=== PATIENT | female | born 1950 | race Caucasian/White ===

== ENCOUNTER → 2018-06-28 | Outpatient (CLI) | payer MEDICARE, BC ==
[2018-06-28 09:52] VITALS: BP 154/88; PULSE 73; BMI 32.5
--- NOTE | 2018-06-28 10:35 | P.GSHP ---
History of Present Illness H&P Date: 06/28/18 The patient is a 68-year-old white female who approximately 13 years ago underwent a left breast lumpectomy. She was subsequently treated with radiation but did not have any chemo or hormonal therapy. The patient is been doing well and recently had a bilateral mammogram performed. The bilateral mammogram there were 2 new areas of concern in the right breast and additional views were recommended of the right breast. The mammogram was performed 2017. The patient denies any changes in her breast. No skin changes. No nipple discharge or masses or nodules in the breast. Family history: 1.patient left breast cancer 2. Maternal grandmother: Breast cancer 3. Paternal grandmother: Lymphoma Hormonal history: menarche: 17 : 2,first at 25, breast fed: none menopause: 54 BCP: 5 years than had a tubal Hormone: none Past Surgical History: 1. left breast lumpectomh Past Medical History: none Social History: Smoke: Negative Alcohol: Negative Drugs: Negative - Constitutional Constitutional: Denies chills, Denies fever - EENT Eyes: denies blurred vision, denies pain Ears: deny: decreased hearing, tinnitus Ears, nose, mouth and throat: Denies headache, Denies sore throat - Breasts Breasts: bilateral: as per HPI - Cardiovascular Cardiovascular: Denies chest pain, Denies shortness of breath - Respiratory Respiratory: Denies cough, Denies 7 - Gastrointestinal Gastrointestinal: Denies abdominal pain, Denies diarrhea, Denies nausea, Denies vomiting - Genitourinary (Female) Genitourinary: Denies dysuria, Denies hematuria - Menstruation Menstruation: Reports postmenopausal - Musculoskeletal Comment: arthritis - Integumentary Integumentary: Denies pruritus, Denies rash - Neurological Neurological: Denies numbness, Denies weakness - Psychiatric Psychiatric: Denies anxiety, Denies depression - Endocrine Endocrine: Denies fatigue, Denies weight change - Hematologic/Lymphatic Comment: baby aspirin - Allergic/Immunologic Allergic/Immunologic: Reports seasonal allergies Past Medical History Past Medical History: No Reported History History of Any Multi-Drug Resistant Organisms: None Reported Past Surgical History: Breast Surgery Past Anesthesia/Blood Transfusion Reactions: No Reported Reaction Smoking Status: Never smoker - Past Family History Father Additional Family Medical History / Comment(s): MS, heart attack, stroke - at 52 Mother Additional Family Medical History / Comment(s): of an overdose at age 35 ( emotional issues) Medications and Allergies Home Medications Medication Instructions Recorded Confirmed Type Aspirin [Adult Low Dose Aspirin EC] 81 mg PO DAILY 06/28/18 06/28/18 History Atorvastatin Calcium [Lipitor] 10 tab PO DAILY 06/28/18 06/28/18 History Calcium Carbonate [Calcium] 600 tab PO DAILY 06/28/18 06/28/18 History Loratadine [Claritin] 10 tab PO DAILY 06/28/18 06/28/18 History Multivitamins, Thera [Multivitamin 500 tab PO DAILY 06/28/18 06/28/18 History (formulary)] Surgical - Exam Vital Signs Pulse BP Pulse Ox 73 154/88 98 06/28/18 09:47 06/28/18 09:47 06/28/18 09:47 - General well developed, well nourished, no distress - Eyes normal ocular movement, no icteric - ENT no hearing loss, no congestion - Neck no masses, trachea midline - Respiratory normal respiratory effort, clear to auscultation - Cardiovascular Rhythm: regular Heart Sounds: normal: S1, S2 - Abdomen Abdomen: soft, non tender, no guarding, no rigid, no rebound - Neurologic no disoriented, no combative - Musculoskeletal normal gait, normal posture - Psychiatric oriented to time, oriented to person, oriented to place, speech is normal, memory intact Dictate breast examination: Right breast: Multiple positional exam fibrocystic changes no dominant masses or nodules of concern Right axilla: No adenopathy of concern Left breast: Scar changes from prior lumpectomy no dominant mass or nodules of concern of multiple positional exam Left axilla: No adenopathy of concern Results Mammogram report reviewed Assessment and Plan Assessment: Impression/plan: 1. Abnormal mammogram right breast 2. Prior left breast lumpectomy/ no evidence of recurrence Plan: 1. Additional views of the right breast and further recommendation to follow this 2. Follow-up after additional views of the right breast 3. Continued surveillance regarding left breast cancer Cc: Dr. Condon
== END | disposition home or self-care (01) ==
LOC: WWCWWP 09:30
PROVIDERS: ATTEND Surgery
DX: Z53.9 Procedure and treatment not carried out, unspecified reason (principal)

== ENCOUNTER → 2018-07-11 | Outpatient (CLI) | payer MEDICARE, BC ==
[2018-07-11 09:53] VITALS: BMI 32.5
--- NOTE | 2018-07-11 10:17 | P.PN ---
Progress Note - Text Progress Note Date: 07/11/18 The patient is a 68-year-old white female who presented for evaluation related to a mammogram performed on [id number]. The patient was recommended to have additional views of the right breast. Additional views were performed which led to an ultrasound. On ultrasound she was noted to have an area of concern at 10:00 for which ultrasound-guided core biopsy was recommended and the second site at 12:00 which it was recommended that attempted ultrasound core BX performed. The patient understands the risks and benefits of this and this is being scheduled in the near future. She will follow up here after the ultrasound core biopsies are performed. Cc: Dr. Ricardo Condon
--- NOTE | 2018-07-11 13:42 | MM ---
Reason for exam: additional evaluation requested from prior study. Last mammogram was performed 1 month ago. History: Patient is postmenopausal and has history of breast cancer at age 55. Family history of breast cancer in maternal grandmother at age 60. Lumpectomy of the left breast, 2004. Radiation therapy of the left breast, 2004. Took hormonal contraceptives beginning at age 21. Physical Findings: Nurse did not find any significant physical abnormalities on exam. MG 3D Diag Mammo W/Cad RT Spot compression CC, spot compression MLO, and ML view(s) were taken of the right breast. Prior study comparison: June 20, 2018, mammogram. May 22, 2017, mammogram. The breast tissue is heterogeneously dense. This may lower the sensitivity of mammography. Finding #1: There is an intermediate concern, suspicious equal density (isodense), spiculated round mass located 3 cm from the nipple in the 10 o'clock upper outer quadrant, middle position of the right breast. Finding #2: There are stable, fine, regional calcifications in the upper outer quadrant, middle position of the right breast. New finding since May 22, 2017. These results were verbally communicated with the patient and result sheet given to the patient on 07/11/18. ASSESSMENT: Incomplete: need additional imaging evaluation, BI-RAD 0 RECOMMENDATION: Ultrasound of the right breast.
--- NOTE | 2018-07-11 13:47 | USB ---
Reason for exam: additional evaluation requested from abnormal screening. History: Patient is postmenopausal and has history of breast cancer at age 55. Family history of breast cancer in maternal grandmother at age 60. Lumpectomy of the left breast, 2004. Radiation therapy of the left breast, 2004. Took hormonal contraceptives beginning at age 21. US Breast Limited RT Right limited breast ultrasound including focal area of concern, retroareolar and axilla demonstrates a 0.4 x 0.1 x 0.3cm lesion too small to characterize at 10 o'clock, based on mammogram, biopsy recommended, an axilla node and a 0.2 x 0.3 x 0.5cm lesion too small to characterize at 12 o'clock, appears taller than wide, difficult to reproduce, biopsy attempt recommended. These results were verbally communicated with the patient and result sheet given to the patient on 07/11/18. ASSESSMENT: Suspicious, BI-RAD 4 RECOMMENDATION: Ultrasound core biopsy of the right breast. (x 2) Patient already has appointment today to see Dr. Barcenas.
== END | disposition home or self-care (01) ==
LOC: RADMAMWWP 06:48
PROVIDERS: ATTEND Surgery
DX: R92.8 Other abnormal and inconclusive findings on diagnostic imaging of breast (principal); N63.10 Unspecified lump in the right breast, unspecified quadrant
CPT/HCPCS: 77065; 76642; G0279; 77061

== ENCOUNTER → 2018-07-19 | Day surgery (SDC) | payer MEDICARE, BC ==
[2018-07-19 11:08] VITALS: RESP 14; TEMP 98.1; BMI 32.6
[2018-07-19 13:38] VITALS: BP 157/85; PULSE 63
--- NOTE | 2018-07-19 16:15 | USB ---
EXAMINATION TYPE: US biopsy breast VAD RT DATE OF EXAM: 07/19/2018 CLINICAL HISTORY: N60.09 BREAST CYST. TECHNIQUE: Ultrasound guided core biopsy of left breast. COMPARISON: 07/11/2018 FINDINGS: The procedure of ultrasound guided core biopsy was explained to the patient. Benefits, alternatives, and risks were discussed. An informed consent was obtained. Timeout was performed. The patient was placed in supine positioning for imaging and for the procedure. The overlying skin was prepped and draped in usual sterile fashion. Lidocaine buffered with bicarbonate was used as anesthetic into the skin and subcutaneous tissue up to area of concern in the 12:00 position left breast. A leonard was made with surgical scalpel. Under ultrasound guidance, a 12-gauge vacuum assisted biopsy gun device was used to obtain 9 core samples. Following this, a ribbon biopsy clip was left adjacent to the biopsy site. Good hemostasis was obtained with direct pressure. There is moderate bleeding at the biopsy site which was controlled with direct pressure. Approximately 10-15 mL bleeding was observed. A complete new set up was performed. The overlying skin was prepped and draped in usual sterile fashion. Lidocaine buffered with bicarbonate was used as anesthetic into the skin and subcutaneous tissue up to area of concern in the 10 :00 position left breast. A leonard was made with surgical scalpel. Under ultrasound guidance, a 12-gauge vacuum assisted biopsy gun device was used to obtain 3 core samples. The lesion appeared essentially completely sampled after the first biopsy pass. Following this, a coil biopsy clip was left at the biopsy site. Good hemostasis was obtained with direct pressure. No significant bleeding was observed at this location. The patient tolerated the procedure well without any immediate complication. Discharge instructions were discussed patient. Patient will follow-up with the referring surgeon. The patient was kept in the radiology department for short stay after the procedure and then discharged home in stable condition. Post procedure mammogram was obtained. Small hematoma is likely at the clinical indication. Clips appear appropriately placed. IMPRESSION: 1. Successful ultrasound-guided core biopsy left breast, 2 locations. Recommendations: 1. Recommendations are pending pathology results. Pathology Results: Benign A. RIGHT BREAST AT 12:00 POSITION, NEEDLE CORE BIOPSIES: Benign breast parenchyma with fibrocystic spectrum changes including apocrine metaplasia, microscopic papillomatosis, stromal fibrosis and focal duct cystic changes. Mineralizations are identified both in the media of blood vessels and microscopically in breast duct spaces. B. RIGHT BREAST AT 10:00 POSITION, NEEDLE CORE BIOPSIES: Fibrocystic changes including stromal fibrosis, with focal duct cystic changes and moderate to florid intraductal hyperplasia. Focal dense microscopic intraductal mineralizations are seen on step sections. Recommendation Follow up ultrasound of the right breast in 6 months. MTDD
--- NOTE | 2018-07-22 08:28 | MM ---
Reason for exam: additional evaluation requested from abnormal screening. Last mammogram was performed less than 1 month ago. History: Patient is postmenopausal and has history of breast cancer at age 55. Family history of breast cancer in maternal grandmother at age 60. Lumpectomy of the left breast, 2004. Radiation therapy of the left breast, 2004. Took hormonal contraceptives beginning at age 21. MG Diagnostic Mammo RT Wo CAD CC and MLO view(s) were taken of the right breast. Prior study comparison: July 11, 2018, right breast MG 3d diag mammo w/cad RT. June 20, 2018, mammogram. ASSESSMENT: Post procedure mammogram for marker placement RECOMMENDATION: Ultrasound of the right breast in 6 months. PENDING PATHOLOGY RESULTS.
== END | disposition home or self-care (01) ==
LOC: RADUSWWP 10:25
PROVIDERS: ATTEND Surgery
DX: N60.11 Diffuse cystic mastopathy of right breast (principal); R92.8 Other abnormal and inconclusive findings on diagnostic imaging of breast; Z80.3 Family history of malignant neoplasm of breast; Z85.3 Personal history of malignant neoplasm of breast; Z92.3 Personal history of irradiation
CPT/HCPCS: 88305; 77065; 19083; 19084; A4648; J2001

== ENCOUNTER → 2018-08-01 | Outpatient (CLI) | payer MEDICARE, BC ==
[2018-08-01 11:28] VITALS: BP 144/84; PULSE 86; BMI 32.5
--- NOTE | 2018-08-01 11:55 | P.PN ---
Progress Note - Text Progress Note Date: 08/01/18 The patient is a 68-year-old white female who is status post ultrasound-guided core biopsy of 2 areas of concern in the right breast. Both areas were benign on core biopsy. The patient had no pain related to this however she does have some ecchymosis and the area of the nipple areolar complex. Additionally she has a small hematoma in the superior area of the breast at 12:00. The initial mammogram showed an area of microcalcification which was new and this is going to be reviewed with the radiologist to determine if any biopsy of this would be necessitated. Physical exam: Lungs: Clear Heart: Regular rate and rhythm Breast examination: Right breast ecchymosis in the periareolar area with a small area of nodularity in the superior 12 o'clock position believed to be related to a hematoma Impression: 1. Patient status post core biopsy of 2 areas of concern in the right breast/ pathology benign 2. Mammographic area of microcalcifications in the right breast to be reviewed with the radiologist Plan: 1. Repeat right breast mammogram and ultrasound in 6 months 2. Depending on recommendation from radiology will follow this area conservatively as well versus a stereotactic core biopsy CC: Dr. Condon
--- NOTE | 2018-08-01 12:05 | P.PN ---
Progress Note - Text Progress Note Date: 08/01/18 Mammogram reviewed with radiology, they are not worried about area of calcifications in right breast. She will have a repeat mammogram and ultrasound of the right breast in 6 months secondary to the biopsy. CC: Dr. Condon
== END | disposition home or self-care (01) ==
LOC: WWCWWP 11:21
PROVIDERS: ATTEND Surgery
DX: Z53.9 Procedure and treatment not carried out, unspecified reason (principal)

== ENCOUNTER → 2019-01-20 | Outpatient (CLI) | payer MEDICARE, BC ==
--- NOTE | 2019-01-20 09:11 | MM ---
Reason for exam: follow-up at short interval from prior study. Last mammogram was performed 6 months ago. History: Patient is postmenopausal and has history of breast cancer at age 55. Family history of breast cancer in maternal grandmother at age 60. Benign US biopsy breast VAD RT of the right breast, July 19, 2018. Benign US biopsy breast add'l VAD RT of the right breast, July 19, 2018. Lumpectomy of the left breast, 2004. Radiation therapy of the left breast, 2004. Took hormonal contraceptives beginning at age 21. Physical Findings: Nurse did not find any significant physical abnormalities on exam. MG 3D Diag Mammo W/Cad RT CC and MLO view(s) were taken of the right breast. Prior study comparison: July 19, 2018, right breast MG diagnostic mammo RT wo CAD. July 11, 2018, right breast MG 3d diag mammo w/cad RT. The breast tissue is heterogeneously dense. This may lower the sensitivity of mammography. There is chronic nodularity in the right breast. Stable upper outer quadrant grouped calcifications. These results were verbally communicated with the patient and result sheet given to the patient on 01/20/19. ASSESSMENT: Incomplete: need additional imaging evaluation, BI-RAD 0 RECOMMENDATION: Ultrasound of the right breast.
--- NOTE | 2019-01-20 09:14 | USB ---
Reason for exam: follow-up at short interval from prior study. History: Patient is postmenopausal and has history of breast cancer at age 55. Family history of breast cancer in maternal grandmother at age 60. Benign US biopsy breast VAD RT of the right breast, July 19, 2018. Benign US biopsy breast add'l VAD RT of the right breast, July 19, 2018. Lumpectomy of the left breast, 2004. Radiation therapy of the left breast, 2004. Took hormonal contraceptives beginning at age 21. US Breast RT Right complete breast ultrasound includes all four quadrants, the retroareolar region and axilla. Finding demonstrates a 5 x 3 x 4mm mixed lesion too small to characterize at 12 o'clock corresponds to the biopsied site, now with a clip, a 4 x 2 x 5mm lesion too small to characterize at 10 o'clock also with a clip and a 6 x 2 x 6mm cystic cluster at 10 o'clock versus complex cyst for which a 6 month follow up is recommended. These results were verbally communicated with the patient and result sheet given to the patient on 01/20/19. ASSESSMENT: Probably benign, BI-RAD 3 RECOMMENDATION: Follow-up diagnostic mammogram of both breasts in 6 months. Back on schedule. Ultrasound of the right breast in 6 months. (attention 10 o'clock zone B)
== END ==
LOC: RADMAMWWP 07:25
PROVIDERS: ATTEND Surgery
DX: R92.8 Other abnormal and inconclusive findings on diagnostic imaging of breast (principal)
CPT/HCPCS: 77065; 76641; G0279; 77061

== ENCOUNTER → 2019-01-24 | Outpatient (CLI) | payer MEDICARE, BC ==
[2019-01-24 09:52] VITALS: BP 167/73; PULSE 85; RESP 18; TEMP 97.1; BMI 32.5
--- NOTE | 2019-01-24 10:11 | P.PN ---
Subjective Progress Note Date: 01/24/19 Principal diagnosis: Fibrocystic breast changes D&Dewey is a 68-year-old white female who comes for follow-up weight breast mammogram and ultrasound after a 2 site biopsy of the right breast performed in July 2018. The biopsy at that time revealed at the 12 o'clock position be nign breast parenchyma with fibrocystic spectrum changes and microscopic papillomatosis at the 10 o'clock position the patient had fibrocystic changes with focal ductal cystic changes at moderate to florid intraductal hyperplasia. The patient does not feel anything of concern in her breast at this time. The patient had a repeat right mammogram and ultrasound performed on . The mammogram revealed heterogeneously dense breast tissue and chronic nodularity with stable upper outer quadrant grouped calcifications. The ultrasound revealed several areas of cystic change and a complex cyst that 10:00 for which a 6 month follow-up was recommended. The patient does not take any hormones. She drinks 3- 4 cups of coffee/day. The patient does not smoke nor she exposed to secondhand smoke. She does not eat chocolate. The patient is status post left breast lumpectomy in 2004. She did have radiation therapy, she did not have any chemotherapy or anti-hormonal therapy. Family History: maternal grandmother: breast cancer paternal grandmother: lymphoma Patient: Prior history of left breast cancer Objective - Vital Signs Vital signs: Vital Signs Temp 97.1 F L 01/24/19 09:44 Pulse 85 01/24/19 09:44 Resp 18 01/24/19 09:44 BP 167/73 01/24/19 09:44 Pulse Ox 95 01/24/19 09:44 Intake & Output 01/23/19 01/24/19 01/24/19 18:59 06:59 18:59 Weight 80.739 kg - Exam BMI 32.6 - Constitutional General appearance: Present: average body habitus - EENT Eyes: Present: EOMI ENT: Present: hearing grossly normal - Respiratory Respiratory: bilateral: CTA - Cardiovascular Rhythm: regular Heart sounds: normal: S1, S2 - Gastrointestinal General gastrointestinal: Present: soft - Integumentary Integumentary Comment(s): breast exam: Right breast: Fibrocystic changes, multiple positional exam no dominant masses or nodules of concern Right axilla: No adenopathy of concern Left breast: Well-healed scar from prior lumpectomy, asymmetrically smaller than the right breast, no dominant masses or nodules of concern, fibrocystic changes Left axilla: No adenopathy of concern Assessment and Plan Assessment: Impression: 1. Personal history of left breast cancer 2. No evidence of recurrent cancer 3. Fibrocystic breast changes 4. Radiographic abnormality right breast 5. History of papillomatosis 6. Family history of cancer 7. High cholesterol Plan: 1. Continue close surveillance secondary to history of breast cancer 2. Repeat bilateral mammogram in 6 months with a right breast ultrasound 3. We will review the pathology and papillomatosis to assure that there is no need for interventional biopsy at this time 4. Continued medical management of medical conditions CC: Dr. Condon
== END ==
LOC: WWCWWP 09:41
PROVIDERS: ATTEND Surgery
DX: Z53.9 Procedure and treatment not carried out, unspecified reason (principal)

== ENCOUNTER → 2019-07-28 | Outpatient (CLI) | payer MEDICARE, BC ==
--- NOTE | 2019-07-28 09:41 | MM ---
Reason for exam: follow-up at short interval from prior study. Last mammogram was performed 6 months ago. History: Patient is postmenopausal and has history of breast cancer at age 55. Family history of breast cancer in maternal grandmother at age 60. Benign US biopsy breast VAD RT of the right breast, July 19, 2018. Benign US biopsy breast add'l VAD RT of the right breast, July 19, 2018. Lumpectomy of the left breast, 2004. Radiation therapy of the left breast, 2004. Took hormonal contraceptives beginning at age 21. Physical Findings: Nurse did not find any significant physical abnormalities on exam. MG 3D Diag Mammo W/Cad SHEA Bilateral CC and MLO view(s) were taken. Prior study comparison: January 20, 2019, right breast MG 3d diag mammo w/cad RT. July 19, 2018, right breast MG diagnostic mammo RT wo CAD. The breast tissue is heterogeneously dense. This may lower the sensitivity of mammography. Previous mammotome biopsy in the right breast x 2. Post surgical and post therapy changes in the left breast. These results were verbally communicated with the patient and result sheet given to the patient on 07/28/19. ASSESSMENT: Incomplete: need additional imaging evaluation, BI-RAD 0 RECOMMENDATION: Ultrasound of the right breast. upper outer quadrant
--- NOTE | 2019-07-28 09:44 | USB ---
Reason for exam: additional evaluation requested from abnormal screening. History: Patient is postmenopausal and has history of breast cancer at age 55. Family history of breast cancer in maternal grandmother at age 60. Benign US biopsy breast VAD RT of the right breast, July 19, 2018. Benign US biopsy breast add'l VAD RT of the right breast, July 19, 2018. Lumpectomy of the left breast, 2004. Radiation therapy of the left breast, 2004. Took hormonal contraceptives beginning at age 21. US Breast Limited RT Right limited breast ultrasound including focal area of concern, retroareolar and axilla demonstrates a lesion too small to characterize at 12 o'clock, a 0.6 x 0.6 x 0.4cm oval lesion at 10 o'clock, larger from prior, 6 month follow up, seems to correspond to previous biopsy site where pathology revealed fibrocystic change, a 0.4 x 0.3 x 0.2cm oval, lesion too small to characterize at 10 o'clock and a 0.4 x 0.3 x 0.2cm oval lesion too small to characterize at 11 o'clock, 6 month follow up recommended. These results were verbally communicated with the patient and result sheet given to the patient on 07/28/19. ASSESSMENT: Probably benign, BI-RAD 3 RECOMMENDATION: Ultrasound of the right breast in 6 months.
== END | disposition home or self-care (01) ==
LOC: RADMAMWWP 07:35
PROVIDERS: ATTEND Surgery
DX: Z08 Encounter for follow-up examination after completed treatment for malignant neoplasm (principal); Z85.3 Personal history of malignant neoplasm of breast; R92.8 Other abnormal and inconclusive findings on diagnostic imaging of breast
CPT/HCPCS: 77066; 76642; G0279; 77062

== ENCOUNTER → 2019-08-07 | Outpatient (CLI) | payer MEDICARE, BC ==
[2019-08-07 09:08] VITALS: BP 136/81; PULSE 86; RESP 18; TEMP 97.9; BMI 32.5
--- NOTE | 2019-08-07 09:50 | P.PN ---
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 She did not have any chemotherapy or hormonal therapy. Approximately a year ago she underwent a right breast biopsy for mammographic abnormalitywas found to be benign microscopic papillomatosis. She is not complaining of any problems with either breast at this time. She had a bilateral mammogram performed on 07/28/2019. This was felt to be incomplete and ultrasound of the right breast was recommended. The ultrasound of the right breast reveals changes consistent with fibrocystic disease it was felt to be probably benign and repeat ultrasound of the right breast in 6 months time was recommended. Family History: maternal grandmother: breast cancer paternal grandmother: lymphoma Patient: Prior history of left breast cancer Hormonal history: Menarche: 16 , breast fed: none, age at first : 23 menopause: 52 BCP: 2 years hormones: none Surgical history: 1. Tubal ligation 2. Left breast lumpectomy Medical History: high cholesterol Social History: Smoking: Negative Alcohol: Negative Drugs: Negative Review of systems: Constitutional: Negative HEENT: none lungs: none heart: none GI: none : bladder infection in the past Musculoskeletal: Negative Psychiatric: Negative Neurologic: Negative Integument: mole which has changed Objective - Vital Signs Vital signs: Vital Signs Temp 97.9 F 08/07/19 09:02 Pulse 86 08/07/19 09:02 Resp 18 08/07/19 09:02 BP 136/81 08/07/19 09:02 Pulse Ox 97 08/07/19 09:02 Intake & Output 08/06/19 08/07/19 08/07/19 18:59 06:59 18:59 Weight 80.739 kg - Exam BMI 32.6 - Constitutional General appearance: Present: average body habitus - EENT Eyes: Present: EOMI ENT: Present: hearing grossly normal - Neck Neck: Present: normal ROM - Respiratory Respiratory: bilateral: CTA - Cardiovascular Rhythm: regular Heart sounds: normal: S1, S2 - Gastrointestinal General gastrointestinal: Present: soft - Integumentary Integumentary Comment(s): nevis with some crusting at her bra line Integumentary: Present: normal turgor - Musculoskeletal Musculoskeletal: Present: gait normal - Psychiatric Psychiatric: Present: A&O x's 3, appropriate affect, intact judgment & insight - Additional findings Additional findings: Breast examination: Seven: Multiple positional exam no dominant masses or nodules of concern Right axilla: No adenopathy of concern Left breast: Well-healed scar from prior lumpectomy multiple positional exam no dominant masses or nodules of concern, left breast is much smaller than the right breast requiring Implant so that her bra off its Left axilla: No adenopathy of concern Bra size: 42B Patient has been told she has some scoliosis, she has some back discomfort, she has difficulty wearing clothes secondary to the discrepancy in size of her breast and is necessary wear prosthesis with the left breast so that her bra and clothes will fit. This is distress for the patient. She wishes to have sy mmetry procedure performed. Assessment and Plan Assessment: Impression: 1. Personal history of left breast cancer 2. Asymmetry of the breast resulting in difficulty with clothes fitting as well as aggravating back pain and anxiety for the patient 3. Hyperlipidemia 4. abnormal nevis Plan: 1. Excision of nevus Bra line 2. Reduction mammoplasty right breast secondary to asymmetry 3. Medical management of medical conditions CC: DR. Condon
== END | disposition home or self-care (01) ==
LOC: WWCWWP 08:54
PROVIDERS: ATTEND Surgery
DX: Z53.9 Procedure and treatment not carried out, unspecified reason (principal)

== ENCOUNTER → 2019-09-25 | Outpatient (CLI) | payer MEDICARE, BC ==
[2019-09-25 15:03] VITALS: BP 161/80; PULSE 93; RESP 18; TEMP 98; BMI 32.5
--- NOTE | 2019-09-25 16:05 | P.PN ---
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 She did not have any chemotherapy or hormonal therapy. Approximately a year ago she underwent a right breast biopsy for mammographic abnormalitywas found to be benign microscopic papillomatosis. She is not complaining of any problems with either breast at this time. She had a bilateral mammogram performed on 07/28/2019. This was felt to be incomplete and ultrasound of the right breast was recommended. The ultrasound of the right breast reveals changes consistent with fibrocystic disease it was felt to be probably benign and repeat ultrasound of the right breast in 6 months time was recommended. The patient complains of difficulty finding clothes to fit secondary to the difference in size of her breast. This cause anxiety and discomfort for the patient. The patient is to develop some erythema and questionable shingles under the left breast. She is recently been given a prescription for nystatin a medication for the shingles. Her procedure which was scheduled for next week will be postponed awaiting resolution of the rash. Family History: maternal grandmother: breast cancer paternal grandmother: lymphoma Patient: Prior history of left breast cancer Hormonal history: Menarche: 16 , breast fed: none, age at first : 23 menopause: 52 BCP: 2 years hormones: none Surgical history: 1. Tubal ligation 2. Left breast lumpectomy Medical History: high cholesterol Social History: Smoking: Negative Alcohol: Negative Drugs: Negative Review of systems: Constitutional: Negative HEENT: none lungs: none heart: none GI: none : bladder infection in the past Musculoskeletal: Negative Psychiatric: Negative Neurologic: Negative Integument: mole which has changed Objective - Vital Signs Vital signs: Vital Signs Temp 98.0 F 09/25/19 14:59 Pulse 93 09/25/19 14:59 Resp 18 09/25/19 14:59 BP 161/80 09/25/19 14:59 Pulse Ox 97 09/25/19 14:59 Intake & Output 09/24/19 09/25/19 09/25/19 18:59 06:59 18:59 Weight 80.739 kg - Exam BMI 32.6 - Constitutional General appearance: Present: obese - EENT Eyes: Present: EOMI ENT: Present: hearing grossly normal - Neck Neck: Present: normal ROM - Respiratory Respiratory: bilateral: CTA - Cardiovascular Rhythm: regular Heart sounds: normal: S1, S2 - Gastrointestinal General gastrointestinal: Present: soft - Integumentary Integumentary: Present: normal turgor - Musculoskeletal Musculoskeletal: Present: gait normal - Psychiatric Psychiatric: Present: A&O x's 3, appropriate affect, intact judgment & insight - Additional findings Additional findings: breast exam: Right breast: Multi-positional exam no dominant masses or nodules of concern right axilla: No adenopathy of concern left breast: Significantly smaller than right breast well-healed scar from prior surgery no dominant masses or nodules of concern, probable fungal infection possible shingles under the left breast no skin lesions under the right breast Left axilla: No adenopathy of concern Bra 42B/C Ptosis grade 3 right, grade 1/2 left Assessment and Plan Assessment: Impression: 1. Personal history of breast cancer 2. Asymmetry of the breast resulting in difficulty with clothes fitting, as well as aggravating back pain and anxiety for the patient 3. Hyperlipidemia 4. [place] with some crusting at her bra line 5. Fungal infection versus shingles under her left breast Plan: 1. Excision of nevus bra line 2. Reduction mammoplasty right breast secondary to asymmetry 3. Medical management of medical conditions 4. Nystatin/medication for shingles was given by primary care doctor 5. Patient to call on October 06, to inform us of hte status of the rash under her left breast prior to proceeding with surgery Patient has been told she has some scoliosis. She has some back discomfort and has difficulty wearing close secondary to the discrepancy in size of her breast and it is necessary for her to wear prosthesis in the left block so that her) 4. This causes distress for the patient. She wishes to have symmetry procedure performed. I given the patient the option of seeing a plastic surgeon or having a procedure done by a plastic surgeon. She has declined. She understands the risks and benefits which include bleeding infection reaction to the anesthetic. She also understands that she did have some decreased sensation and/or loss of the nipple complex. She understands the breast will not be totally symmetric. She wishes to proceed. about 30 minutes spent with the patient; > 50% of the time spent explaining the procedure to the patient. The patient was measured, and lines were marked to explain where the incisions would be made. Pictures were obtained. CC: DR. Condon Time with Patient: Greater than 30
== END | disposition home or self-care (01) ==
LOC: WWCWWP 14:52
PROVIDERS: ATTEND Surgery
DX: Z53.9 Procedure and treatment not carried out, unspecified reason (principal)

== ENCOUNTER 2019-10-07 07:25 | Day surgery (SDC) | payer MEDICARE, BC ==
[2019-10-06 10:00] VITALS: BMI 32.5
[~2019-10-07 07:25] MED LIST: DEXAMETHASONE SOD PHOSPHATE 10 MG/ML 1 ML VIAL IV ONE; HEPARIN SODIUM,PORCINE 5,000 UNIT/ML 1 ML VIAL SQ ONE; HYDROmorphone 0.5 MG/0.5 ML SYRINGE IVP PRN; LACTATED RINGERS 1,000 ML IV SCH; MIDAZOLAM 2 MG/2 ML VIAL IV PRN; ONDANSETRON 4 MG/2 ML VIAL IVP ONE; Pre Op ABX Message 1 EACH MISC MISCELLANE ONE
[2019-10-07] MEDS ORDERED: LIDOCAINE 1% 20 ML VIAL (10MG/ML) FOR IV START INTRADERMA ONE (07:55)
[2019-10-07] MEDS ORDERED: LIDOCAINE 1% INJ 10MG/ML (20 ML MDV) ONE (08:24)
[2019-10-07] MEDS ORDERED: MIDAZOLAM 2 MG/2 ML VIAL ONE (08:24)
[2019-10-07] MEDS ORDERED: NEOSTIGMINE 1 MG/ML 10 ML VIAL ONE (08:24)
[2019-10-07] MEDS ORDERED: GLYCOPYRROLATE 0.2 MG/ML 2 ML VIAL ONE (08:24)
[2019-10-07] MEDS ORDERED: SUCCINYLCHOLINE CHLORIDE 100 MG/5 ML SYR IV ONE (08:24)
[2019-10-07] MEDS ORDERED: fentaNYL (PF) 50 MCG/ML 2 ML AMP ONE (08:24)
[2019-10-07] MEDS ORDERED: PHENYLEPHRINE-0.9% NACL SYG 1 MG/10 ML SYRINGE ONE (08:24)
[2019-10-07] MEDS ORDERED: ROCURONIUM BROMIDE 10 MG/ML 10 ML VIAL IV ONE (08:24)
[2019-10-07] MEDS ORDERED: PROPOFOL 10 MG/ML 20 ML VIAL IV ONE (08:24)
[2019-10-07] MEDS ORDERED: SODIUM CHLORIDE 0.9% 100 ML with ceFAZolin 2,000 MG IV ONE ×2 (08:35)
[2019-10-07] MEDS ORDERED: LACTATED RINGERS 1,000 ML IV ONE (10:09)
[2019-10-07 10:59] VITALS: TEMP 97.4
[2019-10-07 11:07] VITALS: RESP 16
[2019-10-07 12:24] VITALS: PULSE 58
[2019-10-07 12:37] VITALS: BP 144/56
--- NOTE | 2019-10-07 21:05 | OP ---
OPERATIVE REPORT DATE OF SURGERY: 10/07/2019 SURGEON: Dr. Jose Alfredo Hankins. 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 Gabe Jacobs. PREOPERATIVE DIAGNOSES: 1. Acquired asymmetry of breast secondary to breast cancer treatment. 2. Personal history of breast cancer. POSTOPERATIVE DIAGNOSES: 1. Acquired asymmetry of breast secondary to breast cancer treatment. 2. Personal history of breast cancer. OPERATIVE PROCEDURE: Right breast reduction. OPERATIVE INDICATIONS: Patient is a 69-year-old female who is 14 years status post left breast lumpectomy, axillary lymph node dissection and radiation treatment for breast cancer. She did well with those procedures and has desired surgery to correct for significant asymmetries that were present following her left breast surgery. The patient was referred to my care for this purpose, and I have counseled her to undergo right breast reduction. The patient understands her potential risks and complications with all surgery, including but not limited to seroma, hematoma, wound healing problems, postoperative infection, loss of sensation, potential loss of nipple-areolar complex or loss of nipple-areolar sensation. The patient further understands that there will not be perfect symmetry created between her right and left breast, but will improve her symmetry over the current state, and I suspect resolve the majority of her concerns. She has requested I perform the surgery. OPERATIVE PROCEDURE SUMMARY: The patient was seen in the presurgical area, markings made, procedure reviewed, all questions answered. She was transported to the operating room, where she was placed in supine position. Following induction of general tracheal anesthesia, the patient was prepped and draped in the usual fashion. The patient's markings placed preoperatively were now oriented with a skin marker. The right breast was distracted from the chest wall, a tourniquet placed around the base and distraction tension placed around the nipple-areolar complex. A 50 mm nipple-areolar template was then used to draw a [place] with the nipple in the central portion. A second [place] was drawn around the first in concentric fashion with 1 cm of tissue in between. Incisions were now made around the nipple-areolar complex following the circles made, each partial-thickness into the skin. The area of in-between tissue was de-epithelialized. All tissue excised from the breast was conserved for weights. At the outer periphery of the de-epithelialized [place], incision was carried into breast parenchyma using cauterization. The nipple- areolar complex was oriented for later retrieval with one staple at 12 o'clock, 2 michel at 3 o'clock. A 2-0 Prolene suture was placed around the periphery dermal edges of the nipple-areolar complex and tied back to itself as a large loop, also to help with later retrieval of the nipple-areolar complex. The vertical and transverse breast reduction incisions were now made as diagrammed using a 10-blade scalpel to divide the skin in full-thickness fashion followed by cauterization, maintaining hemostasis. Skin and subcutaneous tissue flaps were now elevated off the breast parenchyma by scissor dissection until reaching the planned upper level skin reduction incision, at which point the dissection was carried into a deeper plane, including skin, subcutaneous tissue and breast parenchyma approximately 1.5 cm from the skin surface. The dissection at this level was completed with scissors and carried down to the chest wall. Hemostasis was maintained with cautery once completed. The central breast glandular elements were now reduced from the periphery, taking the majority of breast tissue from the lateral and to a lesser degree from the medial areas. The excised breast tissue was conserved for weights. Once sufficient glandular reduction was completed, the skin reduction was performed following the markings placed preoperatively, excising the skin with a 10-blade scalpel and cauterization. Hemostasis was maintained with cautery. The combined weight of the tissue removed was 150 grams. Inspection was made for hemostasis, which was excellent. The reduction was now closed, approximating the superior, medial and lateral triangular elements to the inferior midline using inverted interrupted 2-0 Vicryl suture and then temporarily completing the closure with michel. The result was as desired and appeared appropriate size and shape for the patient with respect to her left breast. The incisions were now closed, approximating deep dermis using inverted interrupted 4-0 Monocryl. The 2-0 Vicryl suture was removed and replaced with 4-0 Monocryl suture as well. The transverse incision closures were completed at the skin layer using subcuticular 3-0 Prolene short running sutures. The patient was placed in a seated-up position. New location for the nipple-areolar complex was determined using a 45 mm nipple-areolar template. She was returned to supine position. This circular site was now de-epithelialized with a 10-blade scalpel. A cruciate incision was made through the de-epithelialized tissue in the nipple-areolar complex delivered in location. Orientation was assured by identifying the michel. Michel and Prolene sutures were removed. The nipple-areolar complex was inset at the 12 o'clock, 3 o'clock, 6 o'clock, 9 o'clock positions using inverted interrupted 4-0 Monocryl, and then each of these areas bisected again with a deep dermal suture of 4-0 Monocryl. Superficial dermal and epidermal closure around the nipple-areolar complex in vertical incision closure were completed using short running 5-0 Prolene sutures. Surgical field was cleansed with saline, dried, postoperative bandages placed using sterile one-inch paper tape over subcuticular and running repairs followed by Kerlix squares secured with paper tape and in position a size 2 mammary support. The patient was then awakened from her anesthetic, extubated and transferred to the recovery room in good condition with stable vital signs. The estimated blood loss was 50 mL. There were no complications. MMMAX / CATHERINEN: [id number] /
== END 2019-10-07 14:00 | disposition home or self-care (01) ==
LOC: OR 07:25
PROVIDERS: ATTEND Surgery
DX: N64.89 Other specified disorders of breast (principal); E78.5 Hyperlipidemia, unspecified; Z85.3 Personal history of malignant neoplasm of breast; Z92.3 Personal history of irradiation; Z91.040 Latex allergy status; Z92.21 Personal history of antineoplastic chemotherapy; Z79.899 Other long term (current) drug therapy
CPT/HCPCS: 88305; 19318; J2250; J1644; J1100; J2710; J2405; J0690; J2001; J3010; J2370; J0330; J2704; J1170

== ENCOUNTER → 2019-10-23 | Outpatient (CLI) | payer MEDICARE, BC ==
[2019-10-23 16:22] VITALS: BP 141/73; PULSE 82; RESP 18; TEMP 97.8
--- NOTE | 2019-10-23 16:38 | P.PN ---
Progress Note - Text Progress Note Date: 10/23/19 Aniya is a 69-year-old white female status post reduction mammoplasty of the right breast on . Pathology was all benign. She is doing well in the incisions are healing well at this time. At CT portion of the incision in the inferior aspect of the breast there is some drainage and she is following with Dr. Burnett regarding this. The remainder of her sutures will be removed tomorrow Dr. Burnett. Patient will follow up here in approximately one month for a nevus removal from her posterior back in the bra line. Physical exam: Lungs: Clear Heart: Regular rate and rhythm Incisions: Clean and dry with the minimal drainage at the T position of the reduction mammoplasty Impression: Patient doing well Plan: Follow up next month for nevus removal cc: DR Condon
== END ==
LOC: WWCWWP 15:48
PROVIDERS: ATTEND Surgery
DX: Z53.9 Procedure and treatment not carried out, unspecified reason (principal)

== ENCOUNTER → 2020-04-05 | Outpatient (CLI) | payer MEDICARE, BC ==
--- NOTE | 2020-04-06 11:31 | USB ---
Reason for exam: follow-up at short interval from prior study. History: Patient is postmenopausal and has history of breast cancer at age 55. Family history of breast cancer in maternal grandmother at age 60. Benign US biopsy breast VAD RT of the right breast, July 19, 2018. Benign US biopsy breast add'l VAD RT of the right breast, July 19, 2018. Lumpectomy of the left breast, 2004. Radiation therapy of the left breast, 2004. Took hormonal contraceptives beginning at age 21. Physical Findings: Nurse did not find any significant physical abnormalities on exam. US Breast RT Right complete breast ultrasound includes all four quadrants, the retroareolar region and axilla. Finding demonstrates a 0.8 x 0.4 x 0.4cm lobulated, hypoechoic, possibly cyst cluster with debris at 7 o'clock, a 0.4 x 0.4 x 0.4cm mixed lesion at 8 o'clock and a 0.9 x 0.3 x 0.6cm possibly cyst with debris at 10 o'clock. Patient with reported mammoplasty since last 07/28/19 mammogram. These results were verbally communicated with the patient and result sheet given to the patient on 04/05/20. ASSESSMENT: Incomplete: need additional imaging evaluation, BI-RAD 0 RECOMMENDATION: Special view mammogram of the right breast.
--- NOTE | 2020-04-06 11:33 | MM ---
Reason for exam: follow-up at short interval from prior study. Last mammogram was performed 8 months ago. History: Patient is postmenopausal and has history of breast cancer at age 55. Family history of breast cancer in maternal grandmother at age 60. Benign US biopsy breast VAD RT of the right breast, July 19, 2018. Benign US biopsy breast add'l VAD RT of the right breast, July 19, 2018. Lumpectomy of the left breast, 2004. Radiation therapy of the left breast, 2004. Took hormonal contraceptives beginning at age 21. MG 3D Diag Mammo W/Cad RT CC and MLO view(s) were taken of the right breast. Prior study comparison: July 28, 2019, bilateral MG 3d diag mammo w/cad SHEA. January 20, 2019, right breast MG 3d diag mammo w/cad RT. July 19, 2018, right breast MG diagnostic mammo RT wo CAD. June 20, 2018, mammogram. The breast tissue is heterogeneously dense. This may lower the sensitivity of mammography. Previous mammotome biopsy in the right breast. Focal asymmetry upper inner quadrant does not seem to persist on 3D. Interval mammoplasty changes. 6 month follow up recommended. These results were verbally communicated with the patient and result sheet given to the patient on 04/05/20. ASSESSMENT: Probably benign, BI-RAD 3 RECOMMENDATION: Follow-up diagnostic mammogram of both breasts in 4 months. Ultrasound of the right breast in 6 months. (right short interval follow up, left annual exam)
== END | disposition home or self-care (01) ==
LOC: RADUSWWP 07:39
PROVIDERS: ATTEND Surgery
DX: R92.8 Other abnormal and inconclusive findings on diagnostic imaging of breast (principal)
CPT/HCPCS: 77065; 76641; G0279; 77061

== ENCOUNTER → 2020-04-22 | Outpatient (CLI) | payer MEDICARE, BC ==
[2020-04-22 13:10] VITALS: BP 149/86; RESP 18; TEMP 98.5
--- NOTE | 2020-04-22 13:44 | P.PN ---
Subjective Progress Note Date: 04/22/20 Principal diagnosis: Left breast lumpectomy for cancer Right breast reduction mammoplasty Aniya is a 69 year old white female status post a left breast lumpectomy approximately 13 years ago. She subsequently was treated with radiation but did not have chemo or hormonal therapy. She then underwent a reduction mammoplasty of the right breast 10/07/2019. Pathology from the reduction mammoplasty a benign breast parenchyma with focal hemosiderin deposition suggestive of prior t rauma or surgical procedure admixed with abundant lobulated benign fat and skin. Her most recent right breast mammogram was in 6119. On this study there was focal asymmetry in the upper inner quadrant which did not persist on 3-D. Interval mammoplasty changes were noted and a six-month follow-up was recommended. She also had a's in ultrasound performed of the right breast which revealed some cystic changes the mammogram was performed after the ultrasound. The recommendation is repeat right breast mammogram and ultrasound in 6 months. Her last bilateral mammogram was in July 2019 and ultrasound of the right breast at that time was recommended. No lesions of concern had been identified in the left breast. Aniya has no questions or concerns related to her breast at this time. Objective - Vital Signs Vital signs: Vital Signs Temp 98.5 F 04/22/20 13:06 Pulse Resp 18 04/22/20 13:06 BP 149/86 04/22/20 13:06 Pulse Ox 95 04/22/20 13:06 Intake & Output 04/21/20 04/22/20 04/22/20 18:59 06:59 18:59 Weight 81.647 kg - Exam BMI 32.9 - Constitutional General appearance: Present: average body habitus - EENT Eyes: Present: EOMI ENT: Present: hearing grossly normal - Neck Neck: Present: normal ROM - Respiratory Respiratory: bilateral: CTA - Cardiovascular Rhythm: regular Heart sounds: normal: S1, S2 - Gastrointestinal General gastrointestinal: Present: normal bowel sounds, soft - Musculoskeletal Musculoskeletal: Present: gait normal - Psychiatric Psychiatric: Present: A&O x's 3, appropriate affect, intact judgment & insight - Additional findings Additional findings: Breast exam: BRA 42B inspection: well healed scar right breast, Palpation: Right breast: Multi-positional exam well healed scar noted dominant masses or nodules of concern, fibrocystic changes Right axilla: No adenopathy of concern Left breast: Multi-positional exam no dominant masses or nodules of concern, scar related to prior surgery and Left axilla: No adenopathy of concern Assessment and Plan Assessment: Impression: 1. No evidence of recurring cancer left breast 2. Status post reduction mastopexy right breast healed well Plan: 1. Repeat bilateral mammogram and right breast ultrasound in October 2020, to have both breast done at the same time ( she is aware by waiting she will be slightly beyond 1 year for the left breast, but she wants to have the mammograms at the same time) 2. She will call if any questions or concerns prior to that time CC: DR. Condon encounter 25 minutes,> 50% of time in planning and counselling
== END | disposition home or self-care (01) ==
LOC: WWCWWP 12:49
PROVIDERS: ATTEND Surgery
DX: Z53.9 Procedure and treatment not carried out, unspecified reason (principal)

== ENCOUNTER → 2020-10-19 | Outpatient (CLI) | payer MEDICARE, BC ==
--- NOTE | 2020-10-19 11:56 | MM ---
Reason for exam: additional evaluation requested from prior study. Last mammogram was performed 6 months ago. History: Patient is postmenopausal and has history of breast cancer at age 55. Family history of breast cancer in maternal grandmother at age 60. Reconstruction of the right breast, 2019. Reduction of the right breast, 2019. Benign US biopsy breast VAD RT of the right breast, July 19, 2018. Benign US biopsy breast add'l VAD RT of the right breast, July 19, 2018. Lumpectomy of the left breast, 2004. Radiation therapy of the left breast, 2004. Took hormonal contraceptives beginning at age 21. Physical Findings: Nurse did not find any significant physical abnormalities on exam. MG 3D Diag Mammo W/Cad SHEA Bilateral CC and MLO view(s) were taken. Prior study comparison: April 05, 2020, right breast MG 3d diag mammo w/cad RT. July 28, 2019, bilateral MG 3d diag mammo w/cad SHEA. The breast tissue is heterogeneously dense. This may lower the sensitivity of mammography. Previous mammotome biopsy in the right breast. Post lumpectomy changes left upper outer quadrant. No significant new findings when compared with previous films. These results were verbally communicated with the patient and result sheet given to the patient on 10/19/20. ASSESSMENT: Benign, BI-RAD 2 RECOMMENDATION: Follow-up diagnostic mammogram of both breasts in 1 year.
--- NOTE | 2020-10-19 12:08 | USB ---
Reason for exam: additional evaluation requested from prior study. History: Patient is postmenopausal and has history of breast cancer at age 55. Family history of breast cancer in maternal grandmother at age 60. Reconstruction of the right breast, 2019. Reduction of the right breast, 2019. Benign US biopsy breast VAD RT of the right breast, July 19, 2018. Benign US biopsy breast add'l VAD RT of the right breast, July 19, 2018. Lumpectomy of the left breast, 2004. Radiation therapy of the left breast, 2004. Took hormonal contraceptives beginning at age 21. US Breast RT Right complete breast ultrasound includes all four quadrants, the retroareolar region and axilla. Finding demonstrates a 0.6 x 1.0 x 0.3cm oval, lobular, mixed lesion at 1 o'clock, a 0.6 x 0.5 x 0.4cm oval, lobular, complex, cystic lesion at 7 o'clock, a 0.2 x 0.7 x 0.3cm oval duct ectasia at 7 o'clock, a 0.5 x 0.4 x 0.3cm oval, cluster, complex, cystic lesion at 8 o'clock, a 0.8 x 0.7 x 0.3cm oval, lobular, complex, cystic lesion at 10 o'clock and a 0.6 x 1.3 x 0.3cm oval, complex, cystic lesion at 10 o'clock. These results were verbally communicated with the patient and result sheet given to the patient on 10/19/20. ASSESSMENT: Probably benign, BI-RAD 3 RECOMMENDATION: Ultrasound of the right breast in 6 months.
== END | disposition home or self-care (01) ==
LOC: RADMAMWWP 10:09
PROVIDERS: ATTEND Surgery
DX: Z08 Encounter for follow-up examination after completed treatment for malignant neoplasm (principal); Z85.3 Personal history of malignant neoplasm of breast
CPT/HCPCS: 77066; 76641; G0279; 77062

== ENCOUNTER → 2020-10-21 | Outpatient (CLI) | payer MEDICARE, BC ==
[2020-10-21 10:51] VITALS: BP 151/72; PULSE 86; RESP 18; TEMP 98.2
--- NOTE | 2020-10-21 11:07 | P.PN ---
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 She did not have any chemotherapy or hormonal therapy. 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 She had a symetry procedure of the right breast about [address] Briscoe. She has no complaints at this time. She had a bilateral mammogram performed on 10-19-20, and a right breast ultrasound. The recommendation was for repeat right breast ultrasound in 6 months she did have cystic changes in the right breast. Additionally a 0.6 x 1 cm lobular mixed lesion at 1:00. Again this was felt to be most likely benign BIRADS 3 and repeat right breast ultrasound in 6 months the mammogram is benign BIRADS 2. She is not complaining of any lumps masses or nodules in either breast. No abnormal nipple discharge or skin changes. Family History: maternal grandmother: breast cancer paternal grandmother: lymphoma Patient: Prior history of left breast cancer Hormonal history: Menarche: 16 , breast fed: none, age at first : 23 menopause: 52 BCP: 2 years hormones: none Surgical history: 1. Tubal ligation 2. Left breast lumpectomy 3. right breast symmetry procedure Medical History: high cholesterol Social History: Smoking: Negative Alcohol: Negative Drugs: Negative Review of systems: Constitutional: Negative HEENT: none lungs: none heart: none GI: none : bladder infection in the past Musculoskeletal: Negative Psychiatric: Negative Neurologic: Negative Integument: mole which has changed Objective - Vital Signs Vital signs: Vital Signs Temp 98.2 F 10/21/20 10:47 Pulse 86 10/21/20 10:47 Resp 18 10/21/20 10:47 BP 151/72 10/21/20 10:47 Pulse Ox 99 10/21/20 10:47 Intake & Output 10/20/20 10/21/20 10/21/20 18:59 06:59 18:59 Weight 83.007 kg - Exam BMI 33.5 - Constitutional General appearance: Present: average body habitus - EENT Eyes: Present: EOMI ENT: Present: hearing grossly normal - Neck Neck: Present: normal ROM - Respiratory Respiratory: bilateral: CTA - Cardiovascular Rhythm: regular Heart sounds: normal: S1, S2 - Gastrointestinal General gastrointestinal: Present: normal bowel sounds, soft - Integumentary Integumentary: Present: normal turgor - Musculoskeletal Musculoskeletal: Present: gait normal - Psychiatric Psychiatric: Present: A&O x's 3, appropriate affect, intact judgment & insight - Additional findings Additional findings: breast exam: BRA: 42B inspection: Well-healed scars from prior right breast reduction mammoplasty, and left breast lumpectomy Palpation: Right breast: Multiple positional exam fibrocystic changes, no dominant masses or nodules of concern Right axilla: No adenopathy of concern Left breast: Postoperative changes as well as radiation changes no dominant masses or nodules of concern Left axilla: No adenopathy of concern Assessment and Plan Assessment: Impression: 1. Status post left breast lumpectomy and radiation therapy for stage 0 breast cancer no evidence of recurrence 2. Right breast ultrasound and mammogram recommendation repeat right breast ultrasound in 6 months Plan: 1. Right breast mammogram and ultrasound 6 months 2. Follow-up sooner any questions or concerns CC: Dr. Condon encounter 15 minutes, > 50% of time in planning and counselling
== END | disposition home or self-care (01) ==
LOC: WWCWWP 10:41
PROVIDERS: ATTEND Surgery
DX: Z53.9 Procedure and treatment not carried out, unspecified reason (principal)

== ENCOUNTER 2021-02-19 09:07 | Emergency (ER) | payer BC, MEDICARE ==
[2021-02-19 09:18] VITALS: RESP 18; TEMP 97.7
--- NOTE | 2021-02-19 09:34 | ED ---
URI HPI - General Chief Complaint: Upper Respiratory Infection Stated Complaint: poss covid+, black tongue Time Seen by Provider: 02/19/21 09:21 Source: patient Mode of arrival: ambulatory Limitations: no limitations - History of Present Illness Initial Comments: 70-year-old female presenting for general malaise, on and off headaches, black tongue. Patient states the past 2 days she has felt slightly off to her malaise on and off headaches. She states her tested positive for cold and has had symptoms for the past week. Patient denies a chest pain shortness of breath nausea vomiting visual changes weakness sensation deficit she does endorse headache of her life. She denies occasional upset stomach she states she took Pepto-Bismol last night. Patient said she woke up with the black tongue. Patient denies any vomiting diarrhea or fevers. Upon arrival patient appears well nontoxic distress. Patient states she would like to receive BAM like her did if she tests positive today, - Related Data Home Medications Medication Instructions Recorded Confirmed Atorvastatin Calcium [Lipitor] 10 tab PO HS 06/28/18 10/21/20 Loratadine [Claritin] 10 tab PO HS 06/28/18 10/21/20 Ascorbic Acid [Vitamin C] 500 mg PO DAILY 04/22/20 10/21/20 Aspirin 81 mg PO DAILY 04/22/20 10/21/20 Allergies Allergy/AdvReac Type Severity Reaction Status Date / Time latex Allergy Rash/Hives Verified 02/19/21 09:13 Review of Systems ROS Statement: Those systems with pertinent positive or pertinent negative responses have been documented in the HPI. ROS Other: All systems not noted in ROS Statement are negative. Past Medical History Past Medical History: Cancer, Hyperlipidemia Additional Past Medical History / Comment(s): Hx left breast cancer 2004. Hx Shingles 07/2018. History of Any Multi-Drug Resistant Organisms: None Reported Past Surgical History: Breast Surgery Additional Past Surgical History / Comment(s): Left breast lumpectomy. Past Anesthesia/Blood Transfusion Reactions: No Reported Reaction Additional Past Anesthesia/Blood Transfusion Reaction / Comment(s): One blood transfusion with childbirth, no reaction. Past Psychological History: No Psychological Hx Reported Smoking Status: Never smoker Past Alcohol Use History: None Reported Past Drug Use History: None Reported - Past Family History Father Additional Family Medical History / Comment(s): MS, heart attack, stroke - at 52. Mother Additional Family Medical History / Comment(s): of an overdose at age 35 (emotional issues). General Exam - General Exam Comments Initial Comments: General: The patient is awake and alert, in no distress Eye: Pupils are equal, round and reactive to light, extra-ocular movements are intact. No nystagmus. There is normal conjunctiva bilaterally. No signs of icterus. Cardiovascular: There is a regular rate and rhythm. No murmur, rub or gallop is appreciated. Respiratory: Lungs are clear to auscultation, respirations are non-labored, breath sounds are equal. No wheezes, stridor, rales, or rhonchi. Gastrointestinal: Soft, non-distended, non-tender abdomen without masses or organomegaly noted. There is no rebound or guarding present. Musculoskeletal: Normal ROM, no tenderness. Strength 5/5. Sensation intact. Pulses equal bilaterally 2+. Neurological: A&O x 3. CN II-XII intact grossly, There are no obvious motor or sensory deficits. Coordination appears grossly intact. Speech is normal. Skin: Skin is warm and dry and no rashes or lesions are noted. Psychiatric: Cooperative, appropriate mood & affect, normal judgment. Limitations: no limitations Course Vital Signs 02/19/21 02/19/21 09:14 12:40 Temperature 97.7 F Pulse Rate 96 76 Respiratory 18 18 Rate Blood Pressure 183/92 187/100 O2 Sat by Pulse 95 96 Oximetry Medical Decision Making - Medical Decision Making No hypoxia, dyspnea, chest pain. Pt appears very well. black tongue clinically correlates with history of Pepto-Bismol use. Patient would like to receive monoclonal antibodies patient meets criteria at the age of 70. Patient was given monoclonal antibodies after discussing the risks versus benefit. She would like to proceed. Patient no ALLERGIC reaction during her monitoring. At this time that she is stable for discharge with close monitoring of symptoms induction outpatient return for any shortness of breath chest pain lip tongue swelling hives or uncontrolled diarrhea or vomiting. Patient is agreeable to this care plan discharge at this time. - Lab Data Lab Results 02/19/21 Range/Units 09:40 Coronavirus (PCR) Detected A (Not Detectd) Disposition Clinical Impression: COVID-19 Disposition: HOME SELF-CARE Condition: Good Instructions (If sedation given, give patient instructions): Coronavirus Disease 2019 (COVID-19) Additional Instructions: Please use medication as discussed. Please follow-up with family doctor in the next 2 days. Please return to emergency room if the symptoms increase or worsen or for any other concerns. Is patient prescribed a controlled substance at d/c from ED?: No Referrals: Ricardo Condon MD [Primary Care Provider] - 1-2 days Time of Disposition: 11:39
[2021-02-19] MEDS ORDERED: SODIUM CHLORIDE 0.9% 50 ML IVPB ONE (10:30)
[2021-02-19] MEDS ORDERED: BAMLANIVIMAB (EUA) 700 MG, ETESEVIMAB (EUA) 1,400 MG in SODIUM CHLORIDE 0.9% 50 ML IVPB ONE (10:30)
[2021-02-19 12:40] VITALS: BP 187/100; PULSE 76
== END 2021-02-19 12:40 | disposition home or self-care (01) ==
LOC: EC 09:07
DX: U07.1 COVID-19 (principal); E78.5 Hyperlipidemia, unspecified; Z85.3 Personal history of malignant neoplasm of breast; Z79.82 Long term (current) use of aspirin
CPT/HCPCS: 87635; 99284; 96365; 96361; Q0245

== ENCOUNTER → 2021-04-12 | Outpatient (CLI) | payer BC, MEDICARE ==
--- NOTE | 2021-04-13 10:23 | USB ---
Reason for exam: clinical finding. History: Patient is postmenopausal and has history of breast cancer at age 55. Family history of breast cancer in maternal grandmother at age 60. Reconstruction of the right breast, 2019. Reduction of the right breast, 2019. Benign US biopsy breast VAD RT of the right breast, July 19, 2018. Benign US biopsy breast add'l VAD RT of the right breast, July 19, 2018. Lumpectomy of the left breast, 2004. Radiation therapy of the left breast, 2004. Took hormonal contraceptives beginning at age 21. Indicated problem(s): difficult physical exam in the right breast. Physical Findings: Nurse did not find any significant physical abnormalities on exam. US Breast RT Right complete breast ultrasound includes all four quadrants, the retroareolar region and axilla. Finding demonstrates a 0.8 x 0.8 x 0.2cm oval, irregular, mixed lesion at 1 o'clock, duct ectasia at 2 o'clock, a 0.6 x 0.5 x 0.4cm oval, irregular, mixed lesion at 7 o'clock, a 1.0 x 0.5 x 0.3cm irregular, mixed lesion at 7 o'clock and a 1.0 x 0.7 x 0.3cm oval, irregular, mixed lesion at 10 o'clock. These results were verbally communicated with the patient and result sheet given to the patient on 04/12/21. ASSESSMENT: Probably benign, BI-RAD 3 RECOMMENDATION: Follow-up diagnostic mammogram of both breasts in 6 months. Ultrasound of the right breast in 6 months.
== END | disposition home or self-care (01) ==
LOC: RADUSWWP 14:22
PROVIDERS: ATTEND Surgery
DX: N64.89 Other specified disorders of breast (principal); N60.41 Mammary duct ectasia of right breast; Z85.3 Personal history of malignant neoplasm of breast; Z80.3 Family history of malignant neoplasm of breast; Z78.0 Asymptomatic menopausal state

== ENCOUNTER → 2021-10-21 | Outpatient (CLI) | payer MEDICARE, BC ==
--- NOTE | 2021-10-21 13:48 | MM ---
Reason for exam: additional evaluation requested from prior study. Last mammogram was performed 1 year ago. History: Patient is postmenopausal and has history of breast cancer at age 55. Family history of breast cancer in maternal grandmother at age 60. Reconstruction of the right breast, 2019. Reduction of the right breast, 2019. Benign US biopsy breast VAD RT of the right breast, July 19, 2018. Benign US biopsy breast add'l VAD RT of the right breast, July 19, 2018. Lumpectomy of the left breast, 2004. Radiation therapy of the left breast, 2004. Took hormonal contraceptives beginning at age 21. Physical Findings: Nurse did not find any significant physical abnormalities on exam. MG 3D Diag Mammo W/Cad SHEA Bilateral CC and MLO view(s) were taken. Prior study comparison: October 19, 2020, bilateral MG 3d diag mammo w/cad SHEA. April 05, 2020, right breast MG 3d diag mammo w/cad RT. The breast tissue is heterogeneously dense. This may lower the sensitivity of mammography. Finding: There is decreased size and architectural distortion in the left breast consistent with known excision changes. Previous mammotome biopsy in the right breast. There is no discrete abnormality. These results were verbally communicated with the patient and result sheet given to the patient on 10/21/21. ASSESSMENT: Benign, BI-RAD 2 RECOMMENDATION: Routine screening mammogram of both breasts in 1 year.
== END | disposition home or self-care (01) ==
LOC: RADMAMWWP 10:52
PROVIDERS: ATTEND Surgery
DX: R92.2 Inconclusive mammogram (principal); Z85.3 Personal history of malignant neoplasm of breast; Z80.3 Family history of malignant neoplasm of breast
CPT/HCPCS: 77066; G0279; 77062

== ENCOUNTER 2025-03-12 12:47 | Inpatient (IN) | payer MEDICARE ==
--- NOTE | 2025-03-12 13:25 | ED ---
SOB HPI - General Chief Complaint: Shortness of Breath Stated Complaint: SOB Time Seen by Provider: 03/12/25 13:20 Source: patient, family (daughter), RN notes reviewed Mode of arrival: ambulatory Limitations: no limitations - History of Present Illness Initial Comments: 74 year old female presenting to the ER for evaluation of shortness of breath. Daughter is providing majority of HPI and PMHX. Daughter reports for the past 2 weeks patient has been having progressively worsening fatigue and weakness. Patient was seen in [place], [place] and diagnosed with pancreatic mass with invasion into her liver. She underwent biopsy of this in [place] and was diagnosed with pancreatic cancer. They are planning on placing a biliary stent soon. Daughter states since biopsy patient has been complaining of worsening shortness of breath. Oxygen saturations have been found to be in the 80s. Patient denies any history of COPD, asthma, PEs or DVTs. She is not currently on a blood thinner. Patient is not on any current home O2 use but is requesting this upon examination. Patient admits to exertional dyspnea but denies any orthopnea or peripheral edema. Patient reports she feels very weak and fatigued. Daughter states she is attempting to establish primary care with Dr. Condon as patient has seen him in the past prior to moving up [place], but is waiting for an appointment currently. Patient has not yet followed up with oncology. Patient denies any fevers, chills, nausea, vomiting, chest pain, urinary complaints, constipation/diarrhea. - Related Data Home Medications Medication Instructions Recorded Confirmed HYDROcodone/APAP 5-325MG [[place] 0.5 - 1 tab PO Q4H PRN 03/12/25 03/12/25 5-325] Losartan [Cozaar] 50 mg PO DAILY 03/12/25 03/12/25 Allergies Allergy/AdvReac Type Severity Reaction Status Date / Time latex Allergy Rash/Hives Verified 03/12/25 14:57 Review of Systems ROS Statement: Those systems with pertinent positive or pertinent negative responses have been documented in the HPI. ROS Other: All systems not noted in ROS Statement are negative. Past Medical History Past Medical History: Cancer, Hyperlipidemia, Hypertension Additional Past Medical History / Comment(s): Hx left breast cancer 2004. Hx Shingles 07/2018. History of Any Multi-Drug Resistant Organisms: None Reported Past Surgical History: Breast Surgery Additional Past Surgical History / Comment(s): Left breast lumpectomy. Past Anesthesia/Blood Transfusion Reactions: No Reported Reaction Additional Past Anesthesia/Blood Transfusion Reaction / Comment(s): One blood transfusion with childbirth, no reaction. Past Psychological History: No Psychological Hx Reported Smoking Status: Never smoker Past Alcohol Use History: None Reported Past Drug Use History: None Reported - Past Family History Father Additional Family Medical History / Comment(s): MS, heart attack, stroke - at 52. Mother Additional Family Medical History / Comment(s): of an overdose at age 35 (emotional issues). General Exam Limitations: no limitations General appearance: alert, in no apparent distress Respiratory exam: Present: normal lung sounds bilaterally. Absent: respiratory distress, wheezes, rales, rhonchi, stridor Cardiovascular Exam: Present: regular rate, normal rhythm, normal heart sounds. Absent: systolic murmur, diastolic murmur, rubs, gallop, clicks GI/Abdominal exam: Present: soft, normal bowel sounds. Absent: distended, tenderness, guarding, rebound, rigid Extremities exam: Present: normal inspection, full ROM, normal capillary refill. Absent: tenderness, pedal edema, joint swelling, calf tenderness Neurological exam: Present: alert, oriented X3, CN II-XII intact Skin exam: Present: warm, dry, intact, other (Jaundice) Course Vital Signs 03/12/25 03/12/25 03/12/25 12:49 13:00 13:20 Temperature 98.2 F Pulse Rate 90 78 Respiratory 20 16 Rate Blood Pressure 126/63 142/77 O2 Sat by Pulse 90 L 96 86 L Oximetry 03/12/25 03/12/25 03/12/25 13:30 14:00 15:00 Temperature 97.2 F L Pulse Rate 89 80 Respiratory 20 17 Rate Blood Pressure 154/72 143/82 O2 Sat by Pulse 93 L 97 95 Oximetry 03/12/25 16:00 Temperature 97.4 F L Pulse Rate 93 Respiratory 15 Rate Blood Pressure 134/81 O2 Sat by Pulse 84 L Oximetry - Reevaluation(s) Reevaluation #1: 03/12/25 17:04 Case discussed with Rocío MILLS who accepts admission. Transaminitis was discussed with Rocío she is agreeable to have GI on consult as this is not primary diagnosis. Reevaluation #2: Medical records requested and pending at time of admission [facility] and [facility]. Medical Decision Making - Medical Decision Making Was pt. sent in by a medical professional or institution (SAMAN Lyles, CLEAN ROOM OPERATOR, urgent care, hospital, or halfway...) When possible be specific @ -No Did you speak to anyone other than the patient for history (EMS, parent, family, police, friend...)? What history was obtained from this source @ -Patient's daughter provided majority of HPI past medical history Did you review nursing and triage notes (agree or disagree)? Why? @ -I reviewed and agree with nursing and triage notes Were old charts reviewed (outside hosp., previous admission, EMS record, old EKG, old radiological studies, urgent care reports/EKG's, halfway records)? Report findings @ -No old charts were reviewed Differential Diagnosis (chest pain, altered mental status, abdominal pain women, abdominal pain men, vaginal bleeding, weakness, fever, dyspnea, syncope, headache, dizziness, GI bleed, back pain, seizure, CVA, palpatations, mental health, musculoskeletal)? @ -Differential Dyspnea:Coronary syndrome, arrhythmia, tamponade, asthma, COPD, pulmonary embolism, pneumonia, pneumothorax, pulmonary effusion, anaphylaxis, diabetic ketoacidosis, flailed chest, pulmonary contusion, diaphragmatic rupture, anemia, neuromuscular, this is not meant to be an all-inclusive list. EKG interpreted by me (3pts min.). @ -As above X-rays interpreted by me (1pt min.). @ -None done CT interpreted by me (1pt min.). @ -CTA chest negative for acute evidence of pulmonary embolism. Focal consolidations to right lower lung with small pleural effusion possibly acute pn eumonia. 16 mm right hilar lymph node enlargement. Groundglass density predominantly in the lower lobes raising question of atelectasis versus mild pulmonary edema. 2.4 cm pancreatic mass and hepatomegaly. U/S interpreted by me (1pt. min.). @ -None done What testing was considered but not performed or refused? (CT, X-rays, U/S, labs)? Why? @ -CXR considered however with hypoxia and patient's history of cancer CTA was ordered to rule out pulmonary embolism or metastasis to lungs. What meds were considered but not given or refused? Why? @ -None Did you discuss the management of the patient with other professionals (professionals i.e. , PA, CLEAN ROOM OPERATOR, lab, RT, psych nurse, social science analyst, business records manager, teacher, loans officer, case hardener)? Give summary @ -Case discussed with LINA Rocío who accepts admission. Was smoking cessation discussed for >3mins.? @ -No Was critical care preformed (if so, how long)? @ -No Were there social determinants of health that impacted care today? How? (Homel essness, low income, unemployed, alcoholism, drug addiction, transportation, low edu. Level, literacy, decrease access to med. care, detention, rehab)? @ -No Was there de-escalation of care discussed even if they declined (Discuss DNR or withdrawal of care, Hospice)? DNR status @ -No What co-morbidities impacted this encounter? (DM, HTN, Smoking, COPD, CAD, Cancer, CVA, ARF, Chemo, Hep., AIDS, mental health diagnosis, sleep apnea, morbid obesity)? @ -Newly diagnosed pancreatic cancer, HTN Was patient admitted / discharged? Hospital course, mention meds given and route, prescriptions, significant lab abnormalities, going to OR and other pertinent info. @ -Admitted. 74-year-old female presented the ER for evaluation of shortness of breath.Upon arrival patient with oxygen saturation minimum of 86% on room air for which patient was placed on 2 L nasal cannula oxygen with improvement to 93%. Vitals otherwise within acceptable limits. Patient is mildly jaundiced appearing in no signs of acute respiratory distress. Laboratory studies along with CTA chest will be obtained. Workup in the ER remarkable for leukocytosis of 19.3 with a left shift. Hemoglobin 11.5. Lactic acid 2.6. TANVI with a BUN of 26, creatinine 1.07 with a GFR 52 [place] patient received IV fluids. Transaminitis total bilirubin 3.3, AST 300, ALT 256, alk phos 405. Troponin undetectable, <0.012. BNP 990. Viral swabs negative. CTA chest negative for acute evidence of DVT but is concerning of pneumonia for which patient will be started on Rocephin and azithromycin. Blood cultures obtained prior to a ntibiotic initiation. Patient also received IV Dilaudid for pain control. Upon reevaluation, patient resting comfortably on stretcher no signs of acute distress. Family and patient educated on laboratory and CTA results, all questions answered. Patient reporting great improvement of discomfort. Patient is agreeable for admission. Case discussed with EM, Rocío, who accepts admission. GI on consult. Patient been in stable condition for further evaluation and treatment. Case discussed with ED attending, Dr. Coats. Undiagnosed new problem with uncertain prognosis? @ -No Drug Therapy requiring intensive monitoring for toxicity (Heparin, Nitro, Insulin, Cardizem)? @ -No Were any procedures done? @ -No Diagnosis/symptom? @ -Pneumonia/TANVI/transaminitis/pancreatic mass Acute, or Chronic, or Acute on Chronic? @ -Acute Uncomplicated (without systemic symptoms) or Complicated (systemic symptoms)? @ -Complicated Side effects of treatment? @ -No Exacerbation, Progression, or Severe Exacerbation? @ -No Poses a threat to life or bodily function? How? (Chest pain, USA, ID, pneumonia, PE, COPD, DKA, ARF, appy, cholecystitis, CVA, Diverticulitis, Homicidal, Suicidal, threat to staff... and all critical care pts) @ -Yes, pneumonia can lead to sepsis and/or endorgan dysfunction. Malignancy - Lab Data Result diagrams: 03/12/25 13:28 03/12/25 13:28 Lab Results 03/12/25 03/12/25 03/12/25 Range/Units 13:28 13:28 13:28 WBC 19.31 H (4.50-10.00) 10*3/uL RBC 3.82 L (4.10-5.20) 10*6/uL Hgb 11.5 L (12.0-15.0) g/dL Hct 33.0 L (37.2-46.3) % MCV 86.4 (80.0-97.0) fL MCH 30.1 (27.0-32.0) pg MCHC 34.8 (32.0-37.0) g/dL Plt Count 129 L (140-440) 10*3/uL MPV 12.2 (9.5-12.2) fL Immature Gran % (Auto) 1.4 % Neutrophils % 79.3 % Lymphocytes % 8.2 % Monocytes % 10.4 % Eosinophils % 0.5 % Basophils % 0.2 % Immature Gran # 0.27 H (0.00-0.04) 10*3/uL Neutrophils # 15.30 H (1.80-7.70) 10*3/uL Lymphocytes # 1.59 (0.90-5.00) 10*3/uL Monocytes # 2.01 H (0.20-1.00) 10*3/uL Eosinophils # 0.10 (0.04-0.35) 10*3/uL Basophils # 0.04 (0.00-0.10) 10*3/uL Immature Plt Fraction 9.6 H (1.1-6.1) % PT (10.0-12.5) sec INR (<1.2) APTT (22.0-30.0) sec Sodium 130 L (137-145) mmol/L Potassium 3.8 (3.5-5.1) mmol/L Chloride 95 L (98-107) mmol/L Carbon Dioxide 25 (22-30) mmol/L Anion Gap 10 mmol/L BUN 26 H (7-17) mg/dL Creatinine 1.07 H (0.52-1.04) mg/dL Est GFR (CKD-EPI)AfAm 60 (>60 ml/min/1.73 sqM) Est GFR (CKD-EPI)NonAf 52 (>60 ml/min/1.73 sqM) Glucose 128 H (74-99) mg/dL Lactic Ac Sepsis Rflx Plasma Lactic Acid Shawn 2.6 H* (0.7-2.0) mmol/L Calcium 7.8 L (8.4-10.2) mg/dL Total Bilirubin 3.3 H (0.2-1.3) mg/dL AST 300 H (14-36) U/L ALT 256 H (4-34) U/L Alkaline Phosphatase 405 H (38-126) U/L Troponin I (0.000-0.034) ng/mL NT-Pro-B Natriuret Pep 990 pg/mL Total Protein 5.5 L (6.3-8.2) g/dL Albumin 3.0 L (3.5-5.0) g/dL Influenza Type A (PCR) (Not Detectd) Influenza Type B (PCR) (Not Detectd) RSV (PCR) (Not Detectd) SARS-CoV-2 (PCR) (Not Detectd) 03/12/25 03/12/2525 Range/Units 13:28 13:28 13:28 WBC (4.50-10.00) 10*3/uL RBC (4.10-5.20) 10*6/uL Hgb (12.0-15.0) g/dL Hct (37.2-46.3) % MCV (80.0-97.0) fL MCH (27.0-32.0) pg MCHC (32.0-37.0) g/dL Plt Count (140-440) 10*3/uL MPV (9.5-12.2) fL Immature Gran % (Auto) % Neutrophils % % Lymphocytes % % Monocytes % % Eosinophils % % Basophils % % Immature Gran # (0.00-0.04) 10*3/uL Neutrophils # (1.80-7.70) 10*3/uL Lymphocytes # (0.90-5.00) 10*3/uL Monocytes # (0.20-1.00) 10*3/uL Eosinophils # (0.04-0.35) 10*3/uL Basophils # (0.00-0.10) 10*3/uL Immature Plt Fraction (1.1-6.1) % PT 13.5 H (10.0-12.5) sec INR 1.3 H (<1.2) APTT 22.5 (22.0-30.0) sec Sodium (137-145) mmol/L Potassium (3.5-5.1) mmol/L Chloride (98-107) mmol/L Carbon Dioxide (22-30) mmol/L Anion Gap mmol/L BUN (7-17) mg/dL Creatinine (0.52-1.04) mg/dL Est GFR (CKD-EPI)AfAm (>60 ml/min/1.73 sqM) Est GFR (CKD-EPI)NonAf (>60 ml/min/1.73 sqM) Glucose (74-99) mg/dL Lactic Ac Sepsis Rflx Plasma Lactic Acid Shawn (0.7-2.0) mmol/L Calcium (8.4-10.2) mg/dL Total Bilirubin (0.2-1.3) mg/dL AST (14-36) U/L ALT (4-34) U/L Alkaline Phosphatase (38-126) U/L Troponin I <0.012 (0.000-0.034) ng/mL NT-Pro-B Natriuret Pep pg/mL Total Protein (6.3-8.2) g/dL Albumin (3.5-5.0) g/dL Influenza Type A (PCR) Not Detected (Not Detectd) Influenza Type B (PCR) Not Detected (Not Detectd) RSV (PCR) Not Detected (Not Detectd) SARS-CoV-2 (PCR) Not Detected (Not Detectd) 03/12/25 Range/Units 15:10 WBC (4.50-10.00) 10*3/uL RBC (4.10-5.20) 10*6/uL Hgb (12.0-15.0) g/dL Hct (37.2-46.3) % MCV (80.0-97.0) fL MCH (27.0-32.0) pg MCHC (32.0-37.0) g/dL Plt Count (140-440) 10*3/uL MPV (9.5-12.2) fL Immature Gran % (Auto) % Neutrophils % % Lymphocytes % % Monocytes % % Eosinophils % % Basophils % % Immature Gran # (0.00-0.04) 10*3/uL Neutrophils # (1.80-7.70) 10*3/uL Lymphocytes # (0.90-5.00) 10*3/uL Monocytes # (0.20-1.00) 10*3/uL Eosinophils # (0.04-0.35) 10*3/uL Basophils # (0.00-0.10) 10*3/uL Immature Plt Fraction (1.1-6.1) % PT (10.0-12.5) sec INR (<1.2) APTT (22.0-30.0) sec Sodium (137-145) mmol/L Potassium (3.5-5.1) mmol/L Chloride (98-107) mmol/L Carbon Dioxide (22-30) mmol/L Anion Gap mmol/L BUN (7-17) mg/dL Creatinine (0.52-1.04) mg/dL Est GFR (CKD-EPI)AfAm (>60 ml/min/1.73 sqM) Est GFR (CKD-EPI)NonAf (>60 ml/min/1.73 sqM) Glucose (74-99) mg/dL Lactic Ac Sepsis Rflx Y Plasma Lactic Acid Shawn (0.7-2.0) mmol/L Calcium (8.4-10.2) mg/dL Total Bilirubin (0.2-1.3) mg/dL AST (14-36) U/L ALT (4-34) U/L Alkaline Phosphatase (38-126) U/L Troponin I (0.000-0.034) ng/mL NT-Pro-B Natriuret Pep pg/mL Total Protein (6.3-8.2) g/dL Albumin (3.5-5.0) g/dL Influenza Type A (PCR) (Not Detectd) Influenza Type B (PCR) (Not Detectd) RSV (PCR) (Not Detectd) SARS-CoV-2 (PCR) (Not Detectd) - EKG Data -: EKG Interpreted by Pa EKG Comments: EKG taken at 13: 09 showing a sinus rhythm. No ST segment elevations or depressions. Incomplete right bundle branch block. Ventricular rate 85, MT interval 135, QRS duration 92, QT/QTc 395/438. - Radiology Data Radiology results: report reviewed, image reviewed Disposition Clinical Impression: Pneumonia, Pancreatic mass, Transaminitis, TANVI (acute kidney injury) Disposition: ADMITTED IP TO THIS HOSP Condition: Stable Time of Disposition: 17:04
[2025-03-12 13:41] LABS: Basophils # (A) 0.04 10*3/uL (0.00-0.10); Basophils % (A) 0.2 %; Eosinophils % (A) 0.5 %; HGB 11.5 g/dL (12.0-15.0); Immature Platelet Fraction 9.6 % (1.1-6.1); Lymphocytes # (A) 1.59 10*3/uL (0.90-5.00); Lymphocytes % (A) 8.2 %; MCH 30.1 pg (27.0-32.0); MCHC 34.8 g/dL (32.0-37.0); MCV 86.4 fL (80.0-97.0); Mean Platelet Volume 12.2 fL (9.5-12.2); Monocytes # (A) 2.01 10*3/uL (0.20-1.00); Monocytes % (A) 10.4 %; Neutrophils % (A) 79.3 %; Platelet Count 129 10*3/uL (140-440); RBC 3.82 10*6/uL (4.10-5.20); RDW 15.2 % (11.5-14.5); WBC 19.31 10*3/uL (4.50-10.00)
[2025-03-12 13:51] LABS: INR 1.3 (<1.2); Partial Thromboplastin Time 22.5 sec (22.0-30.0); Prothrombin Time 13.5 sec (10.0-12.5)
[2025-03-12 14:05] LABS: ALT 256 U/L (4-34); AST 300 U/L (14-36); African American GFR (CKD) 60 (>60 ml/min/1.73 sqM); Alkaline Phosphatase 405 U/L (38-126); Anion Gap 10 mmol/L; Blood Urea Nitrogen 26 mg/dL (7-17); Calcium 7.8 mg/dL (8.4-10.2); Carbon Dioxide 25 mmol/L (22-30); Chloride 95 mmol/L (98-107); Glucose 128 mg/dL (74-99); Non-African American GFR(CKD) 52 (>60 ml/min/1.73 sqM); Potassium 3.8 mmol/L (3.5-5.1); Sodium 130 mmol/L (137-145); Total Bilirubin 3.3 mg/dL (0.2-1.3); Total Protein 5.5 g/dL (6.3-8.2)
[2025-03-12 14:13] LABS: NT-Pro-B-Type Natriuretic Pept 990 pg/mL
[2025-03-12 14:15] LABS: Influenza A Not Detected (Not Detectd); Influenza B Not Detected (Not Detectd); RSV Not Detected (Not Detectd)
[2025-03-12] MEDS: SODIUM CHLORIDE 0.9% 1,000 ML IV ONE (15:12)
[2025-03-12] MEDS: HYDROmorphone 1 MG/ML 1 ML SYRINGE IVP STA (15:17)
--- NOTE | 2025-03-12 15:27 | CT ---
EXAMINATION TYPE: CT angio chest DATE OF EXAM: 03/12/2025 COMPARISON: None CLINICAL INDICATION: Female, 74 years old with history of sob hx pancreatic cancer; PHH, SOB and weak ness. TECHNIQUE: CTA scan of the thorax is performed with IV Contrast, patient injected with 58ml mL of Isovue 370, pu lmonary embolism protocol. MIP images are created and reviewed. CT DLP: 304.[address] CTDI: mGy Automated exposure control for dose reduction was used. FINDINGS: There is a small focal consolidation in the right lung base posteriorly with a small pleural effusion raising the question of acute pneumonia. There is a 16 mm right hilar lymph node which could represe nt a reactive lymph node. There is mild hazy density primarily in the lung bases which could represent atelectasis or mild pulm onary edema. There are no filling defects within the pulmonary arterial circulation to suggest pulmonary emboli. There is no pneumothorax. There is no thoracic aortic aneurysm or cardiomegaly. There is no mediastinal adenopathy. There are no focal osseous lesions. Limited scanning through the brain reveals hepatomegaly and borderline enlarged spleen. There is a 2. 4 cm mass in the region of the pancreas which could represent a pancreatic neoplasm but the upper abd omen is not imaged in its entirety which limits the evaluation of the solid visceral organs of the up per abdomen. IMPRESSION: 1. Small right base infiltrate with small effusion raising the question of pneumonia. 2. A 16 mm right hilar lymph node which could be reactive secondary to the pneumonia. 3. Some groundglass density predominantly in the lower lobes raising the question of atelectasis or m ild pulmonary edema. 4. Suggestion of a 2.4 cm pancreatic mass and hepatomegaly but evaluation of the upper abdomen is swanson ited as described above. [facility], , 03/12/2025 3:25 PM
[2025-03-12] MEDS: AZITHROMYCIN 500 MG TAB PO STA (16:12)
[2025-03-12] MEDS ORDERED: NALOXONE 0.4 MG/ML 1 ML VIAL IV PRN (17:03)
[2025-03-12] MEDS ORDERED: ONDANSETRON 4 MG/2 ML VIAL IVP PRN (17:03)
[2025-03-12] MEDS: SODIUM CHLORIDE 0.9% 1,000 ML IV SCH (19:08)
[2025-03-13] MEDS: HYDROmorphone 1 MG/ML 1 ML SYRINGE IVP PRN (00:47)
[2025-03-13] MEDS: AZITHROMYCIN 500 MG TAB PO SCH (09:26)
--- NOTE | 2025-03-13 10:20 | P.CONS ---
History of Present Illness - Reason for Consult Consult date: 03/13/25 Pancreatic cancer Requesting physician: Felicia Campa - Chief Complaint Shortness of breath - History of Present Illness This a pleasant 74-year-old female with a recent diagnosis of pancreatic cancer with metastasis to the liver diagnosed on Sunday at [facility] in [place] according to the patient. [place] treated underwent biopsy of the liver on Sunday and patient's [place]. Apparently patient was experiencing some shortness of breath and came into the emergency department for further evaluation. She was admitted with pneumonia. Patient's past medical history includes breast cancer, hyperlipidemia and hyper tension. She denies any previous history of liver disease. Reportedly she was supposed to be getting a a biliary stent placed. Patient denies any abdominal pain, nausea or vomiting. She is not established with an oncologist. Prior to her move she used to follow with Dr. Condon as her PCP. Admitting labs WBC 19.3 hemoglobin 11.5 hematocrit 33 platelet count 129,000 INR 1.3 sodium 130 potassium 3.8 BUN 26 creatinine 1.0 glucose 128 lactic acid on admission 2.6 now 1.6 total bilirubin 3.3 AST 300 ALT 256 alkaline phosphatase 405 influenza RSV and COVID serologies negative. Reports from [facility] reviewed, CT scan imaging reports pancreatic mass concerning for neoplasm. Multiple liver lesions. Patient underwent biopsy biopsy results are in chart and reviewed however it was poor sampling and they recommend repeat liver biopsy. Review of Systems REVIEW OF SYSTEMS: CARDIOPULMONARY: No chest pain. Positive shortness of breath. Gastrointestinal: No abdominal pain. No nausea or vomiting. No hematemesis, coffee-ground emesis. No rectal bleeding, or melena. GENITOURINARY: No dysuria or hematuria. Dark urine. MUSCULOSKELETAL: Reports normal range of motion. SKIN: No rashes. Jaundice. ENDOCRINE: No chills, fevers. No excessive weight gain or loss. No polydipsia or polyuria. PSYCHIATRIC: Unremarkable. NEUROLOGY: No change in mental status. Denies dizziness, headache. ENT: Vision unremarkable. CONSTITUTIONAL: No recent weight loss. No fever, chills, night sweats. Past Medical History Past Medical History: Cancer, Hyperlipidemia, Hypertension Additional Past Medical History / Comment(s): Hx left breast cancer 2004. Hx Shingles 07/2018. History of Any Multi-Drug Resistant Organisms: None Reported Past Surgical History: Breast Surgery Additional Past Surgical History / Comment(s): Left breast lumpectomy. Past Anesthesia/Blood Transfusion Reactions: No Reported Reaction Additional Past Anesthesia/Blood Transfusion Reaction / Comm: One blood transfusion with childbirth, no reaction. Past Psychological History: No Psychological Hx Reported Smoking Status: Never smoker Past Alcohol Use History: None Reported Past Drug Use History: None Reported - Past Family History Father Additional Family Medical History / Comment(s): MS, heart attack, stroke - at 52. Mother Additional Family Medical History / Comment(s): of an overdose at age 35 (emotional issues). Medications and Allergies Home Medications Medication Instructions Recorded Confirmed Type HYDROcodone/APAP 5-325MG [[place] 0.5 - 1 tab PO Q4H PRN 03/12/25 03/12/25 History 5-325] Losartan [Cozaar] 50 mg PO DAILY 03/12/25 03/12/25 History Allergies Allergy/AdvReac Type Severity Reaction Status Date / Time latex Allergy Rash/Hives Verified 03/12/25 14:57 Physical Exam Vitals: Vital Signs Temp Pulse Resp BP Pulse Ox 03/13/25 06:40 75 17 152/55 93 L 03/13/25 00:52 85 17 149/92 93 L 03/12/25 19:00 97.8 F 86 17 127/75 93 L 03/12/25 17:00 84 16 152/90 93 L 03/12/25 16:00 97.4 F L 93 15 134/81 84 L 03/12/25 15:00 97.2 F L 80 17 143/82 95 03/12/25 14:00 89 20 154/72 97 03/12/25 13:30 93 L 03/12/25 13:20 86 L 03/12/25 13:00 78 16 142/77 96 03/12/25 12:49 98.2 F 90 20 126/63 90 L General appearance: The patient is alert, oriented, appears in no acute distress. HET: Head is normocephalic and atraumatic. Conjunctiva pink. Sclera anicteric. Neck: Supple without lymphadenopathy. Trachea midline. Heart: Regular. Lungs: Equal expansion, normal respiratory effort. Abdomen: Soft, nontender, nondistended. Right side of abdomen with Band-Aid from recent biopsy. Skin: No rashes. No jaundice. Extremities: Normal skin color and turgor. No pedal edema. Neurological: No focal deficits. Alert and oriented x3. Results CBC & Chem 7: 03/13/25 09:52 03/13/25 09:52 Labs: Abnormal Lab Results - Last 24 Hours (Table) 03/12/25 03/12/25 03/12/25 Range/Units 13:28 13:28 13:28 WBC 19.31 H (4.50-10.00) 10*3/uL RBC 3.82 L (4.10-5.20) 10*6/uL Hgb 11.5 L (12.0-15.0) g/dL Hct 33.0 L (37.2-46.3) % Plt Count 129 L (140-440) 10*3/uL Immature Gran # 0.27 H (0.00-0.04) 10*3/uL Neutrophils # 15.30 H (1.80-7.70) 10*3/uL Monocytes # 2.01 H (0.20-1.00) 10*3/uL Immature Plt Fraction 9.6 H (1.1-6.1) % PT (10.0-12.5) sec INR (<1.2) Sodium 130 L (137-145) mmol/L Chloride 95 L (98-107) mmol/L BUN 26 H (7-17) mg/dL Creatinine 1.07 H (0.52-1.04) mg/dL Glucose 128 H (74-99) mg/dL Plasma Lactic Acid Shawn 2.6 H* (0.7-2.0) mmol/L Calcium 7.8 L (8.4-10.2) mg/dL Total Bilirubin 3.3 H (0.2-1.3) mg/dL AST 300 H (14-36) U/L ALT 256 H (4-34) U/L Alkaline Phosphatase 405 H (38-126) U/L Total Protein 5.5 L (6.3-8.2) g/dL Albumin 3.0 L (3.5-5.0) g/dL 03/12/25 03/12/25 Range/Units 13:28 18:29 WBC (4.50-10.00) 10*3/uL RBC (4.10-5.20) 10*6/uL Hgb (12.0-15.0) g/dL Hct (37.2-46.3) % Plt Count (140-440) 10*3/uL Immature Gran # (0.00-0.04) 10*3/uL Neutrophils # (1.80-7.70) 10*3/uL Monocytes # (0.20-1.00) 10*3/uL Immature Plt Fraction (1.1-6.1) % PT 13.5 H (10.0-12.5) sec INR 1.3 H (<1.2) Sodium (137-145) mmol/L Chloride (98-107) mmol/L BUN (7-17) mg/dL Creatinine (0.52-1.04) mg/dL Glucose (74-99) mg/dL Plasma Lactic Acid Shawn 2.5 H* (0.7-2.0) mmol/L Calcium (8.4-10.2) mg/dL Total Bilirubin (0.2-1.3) mg/dL AST (14-36) U/L ALT (4-34) U/L Alkaline Phosphatase (38-126) U/L Total Protein (6.3-8.2) g/dL Albumin (3.5-5.0) g/dL Comments: Chest CT angiogram impression reads small right basilar infiltrate with small effusion raising the question of pneumonia. 16mm right hilar lymph node which could be reactive secondary to pneumonia. Some groundglass density predominantly in the lower lobes raising the question of atelectasis or mild pulmonary edema. Suggestion of a 2.4 cm pancreatic mass and hepatomegaly but evaluation of the upper abdomen is limited as described above Assessment and Plan (1) Pancreatic mass Narrative/Plan: 74-year-old female recently seen in [facility] at [facility] in [place] with diagnosis of pancreatic mass on 03/08/2025 and underwent liver biopsy this past Sunday at [place] as well results pending. Patient states they believe she has pancreatic cancer. She has had elevated LFTs with cholestatic pattern likely secondary to pancreatic mass. Patient was supposed to undergo stent placement however patient's daughter wanted her to come down to [facility] for treatment and that was not scheduled. She has not yet set with an oncologist and is currently admitted for shortness of breath with diagnosis and treatment for pneumonia. Patient certainly will need to set up appointment with advanced job coach at a tertiary center to undergo stent placement as that is not something that is done here at this hospital. This was discussed with the patient and she is planning on following with Dr. Condon on discharge as he was her previous PCP. If transaminitis worsens during this hospitalization would recommend transfer down to tertiary center for ERCP with EUS and stent placement otherwise can be done as an outpatient. Current Visit: Yes Status: Acute Code(s): K86.89 - OTHER SPECIFIED DISEASES OF PANCREAS SNOMED Code(s): 978502285 (2) Transaminitis Current Visit: Yes Status: Acute Code(s): R74.01 - ELEVATION OF LEVELS OF LIVER TRANSAMINASE LEVELS SNOMED Code(s): 935903556 (3) Shortness of breath Current Visit: Yes Status: Acute Code(s): R06.02 - SHORTNESS OF BREATH SNOMED Code(s): 604597467 (4) Pneumonia Current Visit: Yes Status: Acute Code(s): J18.9 - PNEUMONIA, UNSPECIFIED ORGANISM SNOMED Code(s): 230667936 Plan: 1. Continue symptomatic and supportive care 2. Repeat CBC, CMP 3. Diet as tolerated 4. If LFTs continue to worsen would recommend transfer to tertiary center for ERCP with EUS and biliary stent placement otherwise patient can have outpatient referral to [facility] in [place] or other tertiary center with advanced job coach who performs ERCP with EUS and biliary stent placement Thank you for allowing us to participate in the care of the patient, the GI service will sign off, gastroenterology will not be available at the hospital this weekend and through next week. If further evaluation by gastroenterology is required the patient will need transfer as per the primary team's discretion. Dr. Bala Chang I agree with the dictator's note, documented as a scribe by Dolly Palomo.
[2025-03-13 10:21] LABS: Basophils # (A) 0.02 10*3/uL (0.00-0.10); Basophils % (A) 0.1 %; Eosinophils # (A) 0.24 10*3/uL (0.04-0.35); Eosinophils % (A) 1.5 %; HCT 28.7 % (37.2-46.3); Lymphocytes # (A) 1.11 10*3/uL (0.90-5.00); MCH 30.3 pg (27.0-32.0); MCHC 34.1 g/dL (32.0-37.0); MCV 88.9 fL (80.0-97.0); Monocytes # (A) 1.51 10*3/uL (0.20-1.00); Monocytes % (A) 9.5 %; Neutrophils # (A) 12.79 10*3/uL (1.80-7.70); Platelet Count 130 10*3/uL (140-440); RBC 3.23 10*6/uL (4.10-5.20); RDW 15.8 % (11.5-14.5); WBC 15.82 10*3/uL (4.50-10.00)
[2025-03-13 10:32] LABS: HGB 9.8 g/dL (12.0-15.0)
[2025-03-13 11:34] LABS: ALT 210 U/L (4-34); AST 282 U/L (14-36); African American GFR (CKD) 61 (>60 ml/min/1.73 sqM); Albumin 2.5 g/dL (3.5-5.0); Alkaline Phosphatase 337 U/L (38-126); Anion Gap 7 mmol/L; Blood Urea Nitrogen 31 mg/dL (7-17); Calcium 7.1 mg/dL (8.4-10.2); Carbon Dioxide 27 mmol/L (22-30); Chloride 98 mmol/L (98-107); Globulin 2.4 g/dL; Glucose 164 mg/dL (74-99); Non-African American GFR(CKD) 53 (>60 ml/min/1.73 sqM); Potassium 3.6 mmol/L (3.5-5.1); Sodium 132 mmol/L (137-145); Total Bilirubin 2.6 mg/dL (0.2-1.3); Total Protein 4.9 g/dL (6.3-8.2)
--- NOTE | 2025-03-13 14:26 | P.CNPUL ---
History of Present Illness Consult date: 03/13/25 Requesting physician: Laurent Ashby Reason for consult: dyspnea, cough Chief complaint: Cough and shortness of breath. History of present illness: Pulmonary consult dated March 13, 2025. 74-year-old female who admits to being short of breath for about 2 weeks. She has dry cough, not producing any phlegm. She recently was at a couple of outside hospitals, where she was evaluated for a pancreatic mass. The mass measures about 2.4 cm in size. Apparently they did a biopsy, of the liver, because the mass apparently invaded the liver, and there is a questionable history of pancreatic cancer. The patient is a lifelong non-smoker, denies any previous history of any lung issues. A chest x-ray and CAT scan suggest a right basilar infiltrate, in addition to a 2.4 cm pancreatic mass. In addition, there may be a right hilar lymph node. The patient is currently on 3 L of oxygen. She is more comfortable on the oxygen. Again, she denies a prior history of any lung issues including COPD, asthma, emphysema, etc. The patient was placed on azithromycin and Rocephin for potential pneumonia. Will check a procalcitonin level. We also ordered some updrafts, with albuterol sulfate ipratropium bromide, and will order CA 199. Current labs include a white count of 15.8, hemoglobin 9.8, hematocrit 28.7, and a platelet count of 130,000. Sodium 132, potassium 3.6, chloride 98, CO2 27, BUN 31, creatinine 1.06. Calcium 7.1. Bilirubin 2.6. AST 282. ALT 210. Albumin 2.5. Initial lactate was 2.5. Repeat was 1.6. CT scan shows a consolidation, the right lung base, with a small right-sided pleural effusion, consistent with possible pneumonia. In addition, there is a small right hilar lymph node, likely reactive. No evidence of pulmonary embolism is noted. There is no pneumothorax. A 2.4 cm mass in the region of the pancreas is noted. Review of Systems REVIEW OF SYSTEMS: CONSTITUTIONAL: [Negative.] NEUROLOGIC: [ Negative.] HEENT: [ Negative.] CARDIAC: [Negative.] PULMONARY: Dry cough, and shortness of breath. GI: [Negative.] : [Negative.] RHEUMATOLOGIC: [ Negative.] IMMUNOLOGIC: [ Negative.] ENDOCRINE: [Negative. ] DERMATOLOGIC: [Negative.] Past Medical History Past Medical History: Cancer, Hyperlipidemia, Hypertension Additional Past Medical History / Comment(s): Hx left breast cancer 2004. Hx Shingles 07/2018. History of Any Multi-Drug Resistant Organisms: None Reported Past Surgical History: Breast Surgery Additional Past Surgical History / Comment(s): Left breast lumpectomy. Past Anesthesia/Blood Transfusion Reactions: No Reported Reaction Additional Past Anesthesia/Blood Transfusion Reaction / Comment(s): One blood transfusion with childbirth, no reaction. Past Psychological History: No Psychological Hx Reported Smoking Status: Never smoker Past Alcohol Use History: None Reported Past Drug Use History: None Reported - Past Family History Father Additional Family Medical History / Comment(s): MS, heart attack, stroke - at 52. Mother Additional Family Medical History / Comment(s): of an overdose at age 35 (emotional issues). Medications and Allergies Home Medications Medication Instructions Recorded Confirmed Type HYDROcodone/APAP 5-325MG [[place] 0.5 - 1 tab PO Q4H PRN 03/12/25 03/12/25 History 5-325] Losartan [Cozaar] 50 mg PO DAILY 03/12/25 03/12/25 History Allergies Allergy/AdvReac Type Severity Reaction Status Date / Time latex Allergy Rash/Hives Verified 03/12/25 14:57 Physical Exam Osteopathic Statement: *. No significant issues noted on an osteopathic structural exam other than those noted in the History and Physical/Consult. Vitals: Vital Signs Temp Pulse Pulse Resp BP BP Pulse Ox 03/13/25 13:44 98.7 F 87 17 147/71 96 03/13/25 08:00 98.9 F 86 18 168/77 94 L 03/13/25 06:40 75 17 152/55 93 L 03/13/25 00:52 85 17 149/92 93 L 03/12/25 19:00 97.8 F 86 17 127/75 93 L 03/12/25 17:00 84 16 152/90 93 L 03/12/25 16:00 97.4 F L 93 15 134/81 84 L 03/12/25 15:00 97.2 F L 80 17 143/82 95 Intake and Output 03/12/25 03/13/25 03/13/25 22:59 06:59 14:59 Other: Voiding Method Toilet Weight 83.007 kg No acute distress, oriented 3. The patient is currently on 3 L. No respiratory distress. HEENT examination is grossly unremarkable. Mucous membranes are moist. No oral lesions. Neck supple. Full range of motion. No adenopathy thyromegaly or neck vein distention. Cardiovascular examination reveals regular rhythm rate. S1-S2 normal. No S3 or S4. No discernible murmur noted. Lungs reveal diminished breath sounds at the right base, with crackles at the right lung base. The left lung is clear. No wheezes are noted. Abdomen soft bowel sounds are heard. No masses or tenderness. Extremities are intact. No cyanosis clubbing or edema. Skin is without rash or lesion. Neurologic examination is brief but nonfocal. Results - Laboratory Findings CBC and BMP: 03/13/25 09:52 03/13/25 09:52 PT/INR, D-dimer PT 13.5 sec (10.0-12.5) H 03/12/25 13:28 INR 1.3 (<1.2) H 03/12/25 13:28 Abnormal lab findings: Abnormal Labs 03/12/25 03/12/25 03/12/25 13:28 13:28 13:28 WBC 19.31 H RBC 3.82 L Hgb 11.5 L Hct 33.0 L RDW Plt Count 129 L MPV Immature Gran # 0.27 H Neutrophils # 15.30 H Monocytes # 2.01 H Immature Plt Fraction 9.6 H PT INR Sodium 130 L Chloride 95 L BUN 26 H Creatinine 1.07 H Glucose 128 H Plasma Lactic Acid Shawn 2.6 H* Calcium 7.8 L Total Bilirubin 3.3 H AST 300 H ALT 256 H Alkaline Phosphatase 405 H Total Protein 5.5 L Albumin 3.0 L 03/12/25 03/12/25 03/13/25 13:28 18:29 09:52 WBC 15.82 H RBC 3.23 L Hgb 9.8 L D Hct 28.7 L RDW 15.8 H Plt Count 130 L MPV 13.0 H Immature Gran # 0.15 H Neutrophils # 12.79 H Monocytes # 1.51 H Immature Plt Fraction PT 13.5 H INR 1.3 H Sodium Chloride BUN Creatinine Glucose Plasma Lactic Acid Shawn 2.5 H* Calcium Total Bilirubin AST ALT Alkaline Phosphatase Total Protein Albumin 03/13/25 09:52 WBC RBC Hgb Hct RDW Plt Count MPV Immature Gran # Neutrophils # Monocytes # Immature Plt Fraction PT INR Sodium 132 L Chloride BUN 31 H Creatinine 1.06 H Glucose 164 H Plasma Lactic Acid Shawn Calcium 7.1 L Total Bilirubin 2.6 H AST 282 H ALT 210 H Alkaline Phosphatase 337 H Total Protein 4.9 L Albumin 2.5 L - Diagnostic Findings CT scan - chest: image reviewed Assessment and Plan Assessment: Shortness of breath, with dry cough, secondary to pneumonia, right lower lobe. Recent evaluation for a pancreatic mass, with possible invasion into the liver, at an outside hospital. History of hypertension. History of hyperlipidemia. History of breast cancer. History of shingles. Lifelong non-smoker. Plan: Plan dated March 13, 2025. Will go ahead and order a procalcitonin level on this patient. In addition, the patient is already on azithromycin and Rocephin. In addition, we will do a CA 199, and has some updraft treatments. Labs, x-rays, and medications are reviewed. We did speak to the patient's daughter. The patient had a evaluation, at 2 outside hospitals, recently for pancreatic mass, which apparently was diagnosed as cancer, although, the daughter stated that 1 doctor told her things were suspicious. The biopsy was done of the liver, not of the pancreatic mass. Labs, x-rays, medications are reviewed. Will continue to follow. Prognosis is guarded. The patient's shortness of breath has been present for 2 weeks. Dictation was produced using [employer] software. Please excuse any grammatical, word or spelling errors. Time with Patient: Greater than 30
[2025-03-13] MEDS: IPRATROPIUM-ALBUTEROL 3 ML NEB INHALATION SCH (20:07)
[2025-03-14] MEDS: LOSARTAN 50 MG TAB PO SCH (09:07)
--- NOTE | 2025-03-14 10:07 | P.PN ---
Subjective Progress Note Date: 03/14/25 74-year-old female who admits to being short of breath for about 2 weeks. She has dry cough, not producing any phlegm. She recently was at a couple of outside hospitals, where she was evaluated for a pancreatic mass. The mass measures about 2.4 cm in size. Apparently they did a biopsy, of the liver, b ecause the mass apparently invaded the liver, and there is a questionable history of pancreatic cancer. The patient is a lifelong non-smoker, denies any previous history of any lung issues. A chest x-ray and CAT scan suggest a right basilar infiltrate, in addition to a 2.4 cm pancreatic mass. In addition, there may be a right hilar lymph node. The patient is currently on 3 L of oxygen. She is more comfortable on the oxygen. Again, she denies a prior history of any lung issues including COPD, asthma, emphysema, etc. The patient was placed on azithromycin and Rocephin for potential pneumonia. Will check a procalcitonin level. We also ordered some updrafts, with albuterol sulfate ipratropium bromide, and will order CA 199. Current labs include a white count of 15.8, hemoglobin 9.8, hematocrit 28.7, and a platelet count of 130,000. Sodium 132, potassium 3.6, chloride 98, CO2 27, BUN 31, creatinine 1.06. Calcium 7.1. Bilirubin 2.6. AST 282. ALT 210. Albumin 2.5. Initial lactate was 2.5. Repeat was 1.6. CT scan shows a consolidation, the right lung base, with a small right-sided pleural effusion, consistent with possible pneumonia. In addition, there is a small right hilar lymph node, likely reactive. No evidence of pulmonary embolism is noted. There is no pneumothorax. A 2.4 cm mass in the region of the pancreas is noted. The patient is seen today March 14, 2025 in follow-up on the regular medical floor. She is currently sitting up in bed. Awake and alert in no acute distress. Breathing a bit easier today compared to yesterday. Maintaining O2 saturations in the 90s on 3 L/min per nasal cannula. Procalcitonin was positive at 1.28. She remains on ceftriaxone and azithromycin. Continued on DuoNeb inhalations. Normal saline at 75 mL/h. Blood culture pending. Today's labs are pending. Objective - Vital Signs Vital signs: Vital Signs Temp 98.2 F 03/14/25 07:11 Pulse 98 03/14/25 07:11 Resp 20 03/14/25 07:11 BP 123/73 03/14/25 07:11 Pulse Ox 99 03/14/25 07:11 FiO2 Intake & Output 03/13/25 03/14/25 03/14/25 18:59 06:59 18:59 Intake Total 580 Balance 580 Weight 83.007 kg Intake: Oral 580 Other: Voiding Method Toilet Toilet # Voids 2 2 - Exam GENERAL EXAM: Alert, pleasant 74-year-old female, on 3 L nasal cannula, fairly comfortable in no apparent distress. HEAD: Normocephalic. EYES: Normal reaction of pupils, equal size. NOSE: Clear with pink turbinates. THROAT: No erythema or exudates. NECK: No masses, no JVD. CHEST: No chest wall deformity. LUNGS: Equal air entry with few scattered rhonchi over the right lung. CVS: S1 and S2 normal with no audible murmur, regular rhythm. ABDOMEN: No hepatosplenomegaly, normal bowel sounds, no guarding or rigidity. SPINE: No scoliosis or deformity SKIN: No rashes CENTRAL NERVOUS SYSTEM: No focal deficits, tone is normal in all 4 extremities. EXTREMITIES: There is no peripheral edema. No clubbing, no cyanosis. Periph eral pulses are intact. - Labs CBC & Chem 7: 03/13/25 09:52 03/13/25 09:52 Labs: Abnormal Lab Results - Last 24 Hours (Table) 03/12/25 03/13/25 03/13/25 Range/Units 13:28 09:52 09:52 WBC 15.82 H (4.50-10.00) 10*3/uL RBC 3.23 L (4.10-5.20) 10*6/uL Hgb 9.8 L D (12.0-15.0) g/dL Hct 28.7 L (37.2-46.3) % RDW 15.8 H (11.5-14.5) % Plt Count 130 L (140-440) 10*3/uL MPV 13.0 H (9.5-12.2) fL Immature Gran # 0.15 H (0.00-0.04) 10*3/uL Neutrophils # 12.79 H (1.80-7.70) 10*3/uL Monocytes # 1.51 H (0.20-1.00) 10*3/uL Sodium 132 L (137-145) mmol/L BUN 31 H (7-17) mg/dL Creatinine 1.06 H (0.52-1.04) mg/dL Glucose 164 H (74-99) mg/dL Calcium 7.1 L (8.4-10.2) mg/dL Total Bilirubin 2.6 H (0.2-1.3) mg/dL AST 282 H (14-36) U/L ALT 210 H (4-34) U/L Alkaline Phosphatase 337 H (38-126) U/L Total Protein 4.9 L (6.3-8.2) g/dL Albumin 2.5 L (3.5-5.0) g/dL CA 19-9 Antigen >83844.0 H (0.0-34.9) U/mL Procalcitonin (0.02-0.50) ng/mL 03/13/25 Range/Units 09:52 WBC (4.50-10.00) 10*3/uL RBC (4.10-5.20) 10*6/uL Hgb (12.0-15.0) g/dL Hct (37.2-46.3) % RDW (11.5-14.5) % Plt Count (140-440) 10*3/uL MPV (9.5-12.2) fL Immature Gran # (0.00-0.04) 10*3/uL Neutrophils # (1.80-7.70) 10*3/uL Monocytes # (0.20-1.00) 10*3/uL Sodium (137-145) mmol/L BUN (7-17) mg/dL Creatinine (0.52-1.04) mg/dL Glucose (74-99) mg/dL Calcium (8.4-10.2) mg/dL Total Bilirubin (0.2-1.3) mg/dL AST (14-36) U/L ALT (4-34) U/L Alkaline Phosphatase (38-126) U/L Total Protein (6.3-8.2) g/dL Albumin (3.5-5.0) g/dL CA 19-9 Antigen (0.0-34.9) U/mL Procalcitonin 1.28 H (0.02-0.50) ng/mL Microbiology - Last 24 Hours (Table) 03/12/25 16:04 Blood Culture - Preliminary Blood Assessment and Plan Assessment: Acute hypoxic respiratory failure secondary to pneumonia, right lower lobe. Procalcitonin 1.28 Recent evaluation for a pancreatic mass, with possible invasion into the liver, at an outside hospital History of hypertension History of hyperlipidemia History of breast cancer History of shingles Lifelong non-smoker Plan: The patient was seen and evaluated Medications reviewed Continue ceftriaxone and azithromycin Continue bronchodilators Titrate down the FiO2 as tolerated Follow-up chest x-ray in a.m. We will continue to follow I have personally seen and examined the patient, performed the documentation and the assessment and plan as written. Number of minutes spent on the visit: 10 Dictation was produced using [employer] dictation software. Please excuse any grammatical, word or spelling errors.
[2025-03-14 15:26] LABS: ALT 249 U/L (8-44); AST 364 U/L (13-35); Albumin 2.7 g/dL (3.8-4.9); Albumin/Globulin Ratio 1.35 Ratio (1.60-3.17); Alkaline Phosphatase 417 U/L (41-126); BUN/Creat Ratio 24.89 Ratio (12.00-20.00); Bilirubin, Conjugated 1.74 mg/dL (0.20-0.40); Bilirubin,Unconjugated 0.76 mg/dL (0.20-1.00); Blood Urea Nitrogen 22.4 mg/dL (9.0-27.0); Calcium 7.2 mg/dL (8.7-10.3); Carbon Dioxide 22.8 mmol/L (21.6-31.8); Chloride 100 mmol/L (96-109); Glucose 127 mg/dL (70-110); Sodium 136 mmol/L (135-145); Total Bilirubin 2.5 mg/dL (0.3-1.2); Total Protein 4.7 g/dL (6.2-8.2)
[2025-03-14 17:41] LABS: Anisocytosis (M) 2+ (None Seen); Basophils # (M) 0 X 10*3/uL (0.00-0.10); Eosinophils # (M) 0.52 X 10*3/uL (0.04-0.35); HCT 29.7 % (37.2-46.3); HGB 9.4 g/dL (12.0-15.0); Lymphocytes # (M) 0.69 X 10*3/uL (0.90-5.00); MCH 28.6 pg (27.0-32.0); MCHC 31.6 g/dL (32.0-37.0); MCV 90.3 FL (80.0-97.0); Macrocytosis (M) 2+ (None Seen); Mean Platelet Volume 13.5 FL (9.5-12.2); NRBC Per 100 WBC 0.03 X 10*3/uL (0.00-0.01); Neutrophils % (M) 86 %; Platelet Count 117 X 10*3/uL (140-440); RBC 3.29 X 10*6/uL (4.10-5.20); RDW 16.1 % (11.5-14.5); WBC 17.21 X 10*3/uL (4.50-10.00)
--- NOTE | 2025-03-15 08:03 | XR ---
EXAMINATION TYPE: XR chest 1V portable DATE OF EXAM: 03/15/2025 7:10 AM COMPARISON: CT chest from one day prior. CLINICAL INDICATION: Female, 74 years old with history of Follow up pneumonia; [facility] TECHNIQUE: XR chest 1V portable Frontal view of the chest. FINDINGS: Lungs/Pleura: Low lung volumes are present. There is no evidence of pleural effusion, focal consolida tion, or pneumothorax. Pulmonary vascularity: Unremarkable. Heart/mediastinum: Cardiomediastinal silhouette is unremarkable. Musculoskeletal: No acute osseous pathology. Left midlung surgical clips. IMPRESSION: Low lung volumes with a generalized hazy appearance which could represent atelectasis versus pulmonar y edema correlate with serum BNP. [facility], , 03/15/2025 8:01 AM
--- NOTE | 2025-03-15 09:06 | P.PN ---
Subjective Progress Note Date: 03/15/25 74-year-old female who admits to being short of breath for about 2 weeks. She has dry cough, not producing any phlegm. She recently was at a couple of outside hospitals, where she was evaluated for a pancreatic mass. The mass measures about 2.4 cm in size. Apparently they did a biopsy, of the liver, b ecause the mass apparently invaded the liver, and there is a questionable history of pancreatic cancer. The patient is a lifelong non-smoker, denies any previous history of any lung issues. A chest x-ray and CAT scan suggest a right basilar infiltrate, in addition to a 2.4 cm pancreatic mass. In addition, there may be a right hilar lymph node. The patient is currently on 3 L of oxygen. She is more comfortable on the oxygen. Again, she denies a prior history of any lung issues including COPD, asthma, emphysema, etc. The patient was placed on azithromycin and Rocephin for potential pneumonia. Will check a procalcitonin level. We also ordered some updrafts, with albuterol sulfate ipratropium bromide, and will order CA 199. Current labs include a white count of 15.8, hemoglobin 9.8, hematocrit 28.7, and a platelet count of 130,000. Sodium 132, potassium 3.6, chloride 98, CO2 27, BUN 31, creatinine 1.06. Calcium 7.1. Bilirubin 2.6. AST 282. ALT 210. Albumin 2.5. Initial lactate was 2.5. Repeat was 1.6. CT scan shows a consolidation, the right lung base, with a small right-sided pleural effusion, consistent with possible pneumonia. In addition, there is a small right hilar lymph node, likely reactive. No evidence of pulmonary embolism is noted. There is no pneumothorax. A 2.4 cm mass in the region of the pancreas is noted. The patient is seen today March 14, 2025 in follow-up on the regular medical floor. She is currently sitting up in bed. Awake and alert in no acute distress. Breathing a bit easier today compared to yesterday. Maintaining O2 saturations in the 90s on 3 L/min per nasal cannula. Procalcitonin was positive at 1.28. She remains on ceftriaxone and azithromycin. Continued on DuoNeb inhalations. Normal saline at 75 mL/h. Blood culture pending. Today's labs are pending. The patient is seen today March 15, 2025 in follow-up on the regular medical floor. She is awake and alert in no acute distress. Resting in bed. Breathing easier today compared to yesterday. Still with some cough and congestion. She remains on ceftriaxone and azithromycin. Continued on bronchodilators. White count 17.2. Hemoglobin 9.4. Platelets 117. Sodium 136. Potassium 4.0. Bicarb 23. BUN 22. Creatinine 0.9. Glucose 127. CA 199 antigen was greater than 10,000. Chest x-ray reveals low lung volumes with generalized hazy appearance. Objective - Vital Signs Vital signs: Vital Signs Temp 98.8 F 03/15/25 07:42 Pulse 83 03/15/25 07:45 Resp 18 03/15/25 07:42 BP 144/82 03/15/25 07:42 Pulse Ox 94 L 03/15/25 07:42 FiO2 Intake & Output 03/14/25 03/15/25 03/15/25 18:59 06:59 18:59 Intake Total 480 Balance 480 Intake: Oral 480 Other: Voiding Method Toilet Toilet # Voids 5 2 # Bowel Movements 2 - Exam GENERAL EXAM: Alert, 74-year-old female, resting comfortably in bed, on 3 L nasal cannula, in no apparent distress. HEAD: Normocephalic. EYES: Normal reaction of pupils, equal size. NOSE: Clear with pink turbinates. THROAT: No erythema or exudates. NECK: No masses, no JVD. CHEST: No chest wall deformity. LUNGS: Equal air entry with few scattered rhonchi over the right lung. CVS: S1 and S2 normal with no audible murmur, regular rhythm. ABDOMEN: No hepatosplenomegaly, normal bowel sounds, no guarding or rigidity. SPINE: No scoliosis or deformity SKIN: No rashes CENTRAL NERVOUS SYSTEM: No focal deficits, tone is normal in all 4 extremities. EXTREMITIES: There is no peripheral edema. No clubbing, no cyanosis. Peripheral pulses are intact. - Labs CBC & Chem 7: 03/14/25 06:42 03/14/25 06:42 Labs: Abnormal Lab Results - Last 24 Hours (Table) 03/14/25 03/14/25 Range/Units 06:42 06:42 WBC 17.21 H (4.50-10.00) X 10*3/uL RBC 3.29 L (4.10-5.20) X 10*6/uL Hgb 9.4 L (12.0-15.0) g/dL Hct 29.7 L (37.2-46.3) % MCHC 31.6 L (32.0-37.0) g/dL RDW 16.1 H (11.5-14.5) % Plt Count 117 L (140-440) X 10*3/uL MPV 13.5 H (9.5-12.2) FL Neutrophils # (Manual) 14.80 H (1.80-7.70) X 10*3/uL Lymphocytes # (Manual) 0.69 L (0.90-5.00) X 10*3/uL Monocytes # (Manual) 1.20 H (0.20-1.00) X 10*3/uL Eosinophils # (Manual) 0.52 H (0.04-0.35) X 10*3/uL NRBC/100 WBC Diff 0.03 H (0.00-0.01) X 10*3/uL Anisocytosis (manual) 2+ A (None Seen) Macrocytosis (manual) 2+ A (None Seen) Anion Gap 13.20 H (4.00-12.00) mmol/L BUN/Creatinine Ratio 24.89 H (12.00-20.00) Ratio Glucose 127 H (70-110) mg/dL Calcium 7.2 L (8.7-10.3) mg/dL Total Bilirubin 2.5 H (0.3-1.2) mg/dL Conjugated Bilirubin 1.74 H (0.20-0.40) mg/dL AST 364 H (13-35) U/L ALT 249 H (8-44) U/L Alkaline Phosphatase 417 H (41-126) U/L Total Protein 4.7 L (6.2-8.2) g/dL Albumin 2.7 L (3.8-4.9) g/dL Albumin/Globulin Ratio 1.35 L (1.60-3.17) Ratio Microbiology - Last 24 Hours (Table) 03/12/25 16:04 Blood Culture - Preliminary Blood Assessment and Plan Assessment: Acute hypoxic respiratory failure secondary to pneumonia, right lower lobe. Procalcitonin 1.28 Recent evaluation for a pancreatic mass, with possible invasion into the liver, at an outside hospital. CA 199 antigen was greater than 10,000 History of hypertension History of hyperlipidemia History of breast cancer History of shingles Lifelong non-smoker Plan: The patient was seen and evaluated Chest x-ray, labs and medications reviewed Chest x-ray showing improvement Continue ceftriaxone and azithromycin Continue bronchodilators Titrate down the FiO2 as tolerated Increase her activity as tolerated Medical oncology consulted We will continue to follow I have personally seen and examined the patient, performed the documentation and the assessment and plan as written. Number of minutes spent on the visit: 10 Dictation was produced using [employer] dictation software. Please excuse any grammatical, word or spelling errors.
[2025-03-15 10:32] LABS: Albumin 2.7 g/dL (3.8-4.9); Albumin/Globulin Ratio 1.42 Ratio (1.60-3.17); Bilirubin, Conjugated 2.16 mg/dL (0.20-0.40); Bilirubin,Unconjugated 0.84 mg/dL (0.20-1.00); Globulin 1.9 g/dL (1.6-3.3); Total Protein 4.6 g/dL (6.2-8.2)
--- NOTE | 2025-03-15 15:51 | P.HPIM ---
History of Present Illness H&P Date: 03/13/25 Chief Complaint: Cough/shortness of breath 74-year-old female, history of hypertension, hyperlipidemia, breast cancer, pancreatic mass who admits to being short of breath for about 2 weeks. She has dry cough, not producing any phlegm. She recently was at a couple of outside hospitals, where she was evaluated for a pancreatic mass. The mass measures about 2.4 cm in size. Apparently they did a biopsy, of the liver, because the mass apparently invaded the liver, and there is a questionable history of pancreatic cancer. The patient is a lifelong non-smoker, denies any previous history of any lung issues. The patient is currently on 3 L of oxygen. She is more comfortable on the oxygen. A chest x-ray and CAT scan suggest a right basilar infiltrate, in addition to a 2.4 cm pancreatic mass. In addition, there may be a right hilar lymph node. -- The patient was placed on azithromycin and Rocephin for potential pneumonia. Will check a procalcitonin level. We also ordered some updrafts, with albuterol sulfate ipratropium bromide, and will order CA 199. - Current labs include a white count of 15.8, hemoglobin 9.8, hematocrit 28.7, and a platelet count of 130,000. Sodium 132, potassium 3.6, chloride 98, CO2 27, BUN 31, creatinine 1.06. Calcium 7.1. Bilirubin 2.6. AST 282. ALT 210. Albumin 2.5. Initial lactate was 2.5. Repeat was 1.6. CT scan shows a consolidation, the right lung base, with a small right-sided pleural effusion, consistent with possible pneumonia. In addition, there is a small right hilar lymph node, likely reactive. No evidence of pulmonary embolism is noted. There is no pneumothorax. A 2.4 cm mass in the region of the pancreas is noted. Review of Systems REVIEW OF SYSTEMS: CONSTITUTIONAL: No fever, no malaise, no fatigue. HEENT: No recent visual problems or hearing problems. Denied any sore throat. CARDIOVASCULAR: No chest pain, orthopnea, PND, no palpitations, no syncope. PULMONARY: No shortness of breath, no cough, no hemoptysis. GASTROINTESTINAL: No diarrhea, no nausea, no vomiting, no abdominal pain. NEUROLOGICAL: No headaches, no weakness, no numbness. HEMATOLOGICAL: Denies any bleeding or petechiae. GENITOURINARY: Denies any burning micturition, frequency, or urgency. MUSCULOSKELETAL/RHEUMATOLOGICAL: Denies any joint pain, swelling, or any muscle pain. ENDOCRINE: Denies any polyuria or polydipsia. The rest of the 14-point review of systems is negative. Past Medical History Past Medical History: Cancer, Hyperlipidemia, Hypertension Additional Past Medical History / Comment(s): Hx left breast cancer 2004. Hx Shingles 07/2018. History of Any Multi-Drug Resistant Organisms: None Reported Past Surgical History: Breast Surgery Additional Past Surgical History / Comment(s): Left breast lumpectomy. Past Anesthesia/Blood Transfusion Reactions: No Reported Reaction Additional Past Anesthesia/Blood Transfusion Reaction / Comment(s): One blood transfusion with childbirth, no reaction. Past Psychological History: No Psychological Hx Reported Smoking Status: Never smoker Past Alcohol Use History: None Reported Past Drug Use History: None Reported - Past Family History Father Additional Family Medical History / Comment(s): MS, heart attack, stroke - at 52. Mother Additional Family Medical History / Comment(s): of an overdose at age 35 (emotional issues). Medications and Allergies Home Medications Medication Instructions Recorded Confirmed Type HYDROcodone/APAP 5-325MG [[place] 0.5 - 1 tab PO Q4H PRN 03/12/25 03/12/25 History 5-325] Losartan [Cozaar] 50 mg PO DAILY 03/12/25 03/12/25 History Allergies Allergy/AdvReac Type Severity Reaction Status Date / Time latex Allergy Rash/Hives Verified 03/12/25 14:57 Physical Exam Vitals: Vital Signs Temp Pulse Pulse Resp BP BP Pulse Ox 03/13/25 08:00 98.9 F 86 18 168/77 94 L 03/13/25 06:40 75 17 152/55 93 L 03/13/25 00:52 85 17 149/92 93 L 03/12/25 19:00 97.8 F 86 17 127/75 93 L 03/12/25 17:00 84 16 152/90 93 L 03/12/25 16:00 97.4 F L 93 15 134/81 84 L 03/12/25 15:00 97.2 F L 80 17 143/82 95 03/12/25 14:00 89 20 154/72 97 03/12/25 13:30 93 L 03/12/25 13:20 86 L 03/12/25 13:00 78 16 142/77 96 03/12/25 12:49 98.2 F 90 20 126/63 90 L Intake and Output 03/12/25 03/13/25 03/13/25 22:59 06:59 14:59 Other: Voiding Method Toilet Weight 83.007 kg No acute distress, oriented 3. The patient is currently on 3 L. No respiratory distress. HEENT examination is grossly unremarkable. Mucous membranes are moist. No oral lesions. Neck supple. Full range of motion. No adenopathy thyromegaly or neck vein distention. Cardiovascular examination reveals regular rhythm rate. S1-S2 normal. No S3 or S4. No discernible murmur noted. Lungs reveal diminished breath sounds at the right base, with crackles at the right lung base. The left lung is clear. No wheezes are noted. Abdomen soft bowel sounds are heard. No masses or tenderness. Extremities are intact. No cyanosis clubbing or edema. Skin is without rash or lesion. Neurologic examination is brief but nonfocal. Results CBC & Chem 7: 03/14/25 06:42 03/14/25 06:42 Labs: Abnormal Lab Results - Last 24 Hours (Table) 03/12/25 03/12/25 03/12/25 Range/Units 13:28 13:28 13:28 WBC 19.31 H (4.50-10.00) 10*3/uL RBC 3.82 L (4.10-5.20) 10*6/uL Hgb 11.5 L (12.0-15.0) g/dL Hct 33.0 L (37.2-46.3) % RDW (11.5-14.5) % Plt Count 129 L (140-440) 10*3/uL MPV (9.5-12.2) fL Immature Gran # 0.27 H (0.00-0.04) 10*3/uL Neutrophils # 15.30 H (1.80-7.70) 10*3/uL Monocytes # 2.01 H (0.20-1.00) 10*3/uL Immature Plt Fraction 9.6 H (1.1-6.1) % PT (10.0-12.5) sec INR (<1.2) Sodium 130 L (137-145) mmol/L Chloride 95 L (98-107) mmol/L BUN 26 H (7-17) mg/dL Creatinine 1.07 H (0.52-1.04) mg/dL Glucose 128 H (74-99) mg/dL Plasma Lactic Acid Shawn 2.6 H* (0.7-2.0) mmol/L Calcium 7.8 L (8.4-10.2) mg/dL Total Bilirubin 3.3 H (0.2-1.3) mg/dL AST 300 H (14-36) U/L ALT 256 H (4-34) U/L Alkaline Phosphatase 405 H (38-126) U/L Total Protein 5.5 L (6.3-8.2) g/dL Albumin 3.0 L (3.5-5.0) g/dL 03/12/25 03/12/25 03/13/25 Range/Units 13:28 18:29 09:52 WBC 15.82 H (4.50-10.00) 10*3/uL RBC 3.23 L (4.10-5.20) 10*6/uL Hgb 9.8 L D (12.0-15.0) g/dL Hct 28.7 L (37.2-46.3) % RDW 15.8 H (11.5-14.5) % Plt Count 130 L (140-440) 10*3/uL MPV 13.0 H (9.5-12.2) fL Immature Gran # 0.15 H (0.00-0.04) 10*3/uL Neutrophils # 12.79 H (1.80-7.70) 10*3/uL Monocytes # 1.51 H (0.20-1.00) 10*3/uL Immature Plt Fraction (1.1-6.1) % PT 13.5 H (10.0-12.5) sec INR 1.3 H (<1.2) Sodium (137-145) mmol/L Chloride (98-107) mmol/L BUN (7-17) mg/dL Creatinine (0.52-1.04) mg/dL Glucose (74-99) mg/dL Plasma Lactic Acid Shawn 2.5 H* (0.7-2.0) mmol/L Calcium (8.4-10.2) mg/dL Total Bilirubin (0.2-1.3) mg/dL AST (14-36) U/L ALT (4-34) U/L Alkaline Phosphatase (38-126) U/L Total Protein (6.3-8.2) g/dL Albumin (3.5-5.0) g/dL 03/13/25 Range/Units 09:52 WBC (4.50-10.00) 10*3/uL RBC (4.10-5.20) 10*6/uL Hgb (12.0-15.0) g/dL Hct (37.2-46.3) % RDW (11.5-14.5) % Plt Count (140-440) 10*3/uL MPV (9.5-12.2) fL Immature Gran # (0.00-0.04) 10*3/uL Neutrophils # (1.80-7.70) 10*3/uL Monocytes # (0.20-1.00) 10*3/uL Immature Plt Fraction (1.1-6.1) % PT (10.0-12.5) sec INR (<1.2) Sodium 132 L (137-145) mmol/L Chloride (98-107) mmol/L BUN 31 H (7-17) mg/dL Creatinine 1.06 H (0.52-1.04) mg/dL Glucose 164 H (74-99) mg/dL Plasma Lactic Acid Shawn (0.7-2.0) mmol/L Calcium 7.1 L (8.4-10.2) mg/dL Total Bilirubin 2.6 H (0.2-1.3) mg/dL AST 282 H (14-36) U/L ALT 210 H (4-34) U/L Alkaline Phosphatase 337 H (38-126) U/L Total Protein 4.9 L (6.3-8.2) g/dL Albumin 2.5 L (3.5-5.0) g/dL Thrombosis Risk Factor Assmnt - Choose All That Apply Any of the Below Risk Factors Present?: Yes Each Factor Represents 1 point: Obesity (BMI >25) Other Risk Factors: Yes Each Risk Factor Represents 2 Points: Age 61-74 years, Malignancy Other congenital or acquired thrombophilia - If yes, enter type in comment: No Thrombosis Risk Factor Assessment Total Risk Factor Score: 5 Thrombosis Risk Factor Assessment Level: High Risk Assessment and Plan Assessment: 1. Community-acquired right lower lobe pneumonia -Patient with history of breast cancer and is being worked up for pancreatic mass - Patient being an immune compromised host, will consult pulmonary for further recommendations on IV antibiotics - Patient is currently placed on IV Rocephin and azithromycin - Will monitor CBC, CRP and procalcitonin - Blood cultures and sputum culture if available 2. Acute renal injury; BUNs/creatinine elevated at 31/.06; we will place on IV fluid hydration, monitor strict GARRISON's, daily weights, renal function electrolytes - Avoid nephrotoxins and hypotension 3. Ongoing evaluation for pancreatic mass with liver metastases - Liver enzymes elevated with AST of 282 and ALT of 210, - Patient reports she is being worked up at an outside facility; we will monitor liver enzymes closely - Consult GI; patient has been evaluated by GI and is recommended transfer to tertiary care center if liver enzymes continue to trend up with possible stent placement 4. Lactic acidosis; likely related to dehydration/pneumonia; we will continue with current management and monitor lactic acid levels 5. Hypertension; losartan 50 mg daily 6. Hyperlipidemia; currently not on any statin therapy DVT prophylaxis; SCDs CODE STATUS; full code
--- NOTE | 2025-03-15 15:54 | P.PN ---
Subjective Progress Note Date: 03/14/25 74-year-old female, history of hypertension, hyperlipidemia, breast cancer, pancreatic mass who admits to being short of breath for about 2 weeks. She has dry cough, not producing any phlegm. She recently was at a couple of outside hospitals, where she was evaluated for a pancreatic mass. The mass measures about 2.4 cm in size. Apparently they did a biopsy, of the liver, because the mass apparently invaded the liver, and there is a questionable history of pancreatic cancer. The patient is a lifelong non-smoker, denies any previous history of any lung issues. The patient is currently on 3 L of oxygen. She is more comfortable on the oxygen. A chest x-ray and CAT scan suggest a right basilar infiltrate, in addition to a 2.4 cm pancreatic mass. In addition, there may be a right hilar lymph node. -- The patient was placed on azithromycin and Rocephin for potential pneumonia. Will check a procalcitonin level. We also ordered some updrafts, with albuterol sulfate ipratropium bromide, and will order CA 199. - Current labs include a white count of 15.8, hemoglobin 9.8, hematocrit 28.7, and a platelet count of 130,000. Sodium 132, potassium 3.6, chloride 98, CO2 27, BUN 31, creatinine 1.06. Calcium 7.1. Bilirubin 2.6. AST 282. ALT 210. Albumin 2.5. Initial lactate was 2.5. Repeat was 1.6. CT scan shows a consolidation, the right lung base, with a small right-sided pl eural effusion, consistent with possible pneumonia. In addition, there is a small right hilar lymph node, likely reactive. No evidence of pulmonary embolism is noted. There is no pneumothorax. A 2.4 cm mass in the region of the pancreas is noted. --Patient remains on IV ceftriaxone and azithromycin - Liver enzymes are being monitored and slowly trending down Patient and family requesting oncology consultation Objective - Vital Signs Vital signs: Vital Signs Temp 98.2 F 03/14/25 07:11 Pulse 98 03/14/25 07:11 Resp 20 03/14/25 07:11 BP 123/73 03/14/25 07:11 Pulse Ox 99 03/14/25 07:11 FiO2 Intake & Output 03/13/25 03/14/25 03/14/25 18:59 06:59 18:59 Intake Total 580 Balance 580 Weight 83.007 kg Intake: Oral 580 Other: Voiding Method Toilet Toilet # Voids 2 2 - Exam No acute distress, oriented 3. The patient is currently on 3 L. No respiratory distress. HEENT examination is grossly unremarkable. Mucous membranes are moist. No oral lesions. Neck supple. Full range of motion. No adenopathy thyromegaly or neck vein distention. Cardiovascular examination reveals regular rhythm rate. S1-S2 normal. No S3 or S4. No discernible murmur noted. Lungs reveal diminished breath sounds at the right base, with crackles at the right lung base. The left lung is clear. No wheezes are noted. Abdomen soft bowel sounds are heard. No masses or tenderness. Extremities are intact. No cyanosis clubbing or edema. Skin is without rash or lesion. Neurologic examination is brief but nonfocal. - Labs CBC & Chem 7: 03/14/25 06:42 03/14/25 06:42 Labs: Abnormal Lab Results - Last 24 Hours (Table) 03/12/25 03/13/25 03/13/25 Range/Units 13:28 09:52 09:52 Sodium 132 L (137-145) mmol/L BUN 31 H (7-17) mg/dL Creatinine 1.06 H (0.52-1.04) mg/dL Glucose 164 H (74-99) mg/dL Calcium 7.1 L (8.4-10.2) mg/dL Total Bilirubin 2.6 H (0.2-1.3) mg/dL AST 282 H (14-36) U/L ALT 210 H (4-34) U/L Alkaline Phosphatase 337 H (38-126) U/L Total Protein 4.9 L (6.3-8.2) g/dL Albumin 2.5 L (3.5-5.0) g/dL CA 19-9 Antigen >93164.0 H (0.0-34.9) U/mL Procalcitonin 1.28 H (0.02-0.50) ng/mL Microbiology - Last 24 Hours (Table) 03/12/25 16:04 Blood Culture - Preliminary Blood Assessment and Plan Assessment: 1. Community-acquired right lower lobe pneumonia -Patient with history of breast cancer and is being worked up for pancreatic mass - Patient being an immune compromised host, will consult pulmonary for further recommendations on IV antibiotics - Patient is currently placed on IV Rocephin and azithromycin - Will monitor CBC, CRP and procalcitonin - Blood cultures and sputum culture if available 2. Acute renal injury; BUNs/creatinine elevated at 31/.06; we will place on IV fluid hydration, monitor strict GARRISON's, daily weights, renal function electrolytes - Avoid nephrotoxins and hypotension 3. Ongoing evaluation for pancreatic mass with liver metastases - Liver enzymes elevated with AST of 282 and ALT of 210, - Patient reports she is being worked up at an outside facility; we will monitor liver enzymes closely - Consult GI; patient has been evaluated by GI and is recommended transfer to tertiary care center if liver enzymes continue to trend up with possible stent placement 4. Lactic acidosis; likely related to dehydration/pneumonia; we will continue with current management and monitor lactic acid levels 5. Hypertension; losartan 50 mg daily 6. Hyperlipidemia; currently not on any statin therapy DVT prophylaxis; SCDs CODE STATUS; full code
--- NOTE | 2025-03-15 15:57 | P.PN ---
Subjective Progress Note Date: 03/15/25 74-year-old female, history of hypertension, hyperlipidemia, breast cancer, pancreatic mass who admits to being short of breath for about 2 weeks. She has dry cough, not producing any phlegm. She recently was at a couple of outside hospitals, where she was evaluated for a pancreatic mass. The mass measures about 2.4 cm in size. Apparently they did a biopsy, of the liver, because the mass apparently invaded the liver, and there is a questionable history of pancreatic cancer. The patient is a lifelong non-smoker, denies any previous history of any lung issues. The patient is currently on 3 L of oxygen. She is more comfortable on the oxygen. A chest x-ray and CAT scan suggest a right basilar infiltrate, in addition to a 2.4 cm pancreatic mass. In addition, there may be a right hilar lymph node. -- The patient was placed on azithromycin and Rocephin for potential pneumonia. Will check a procalcitonin level. We also ordered some updrafts, with albuterol sulfate ipratropium bromide, and will order CA 199. - Current labs include a white count of 15.8, hemoglobin 9.8, hematocrit 28.7, and a platelet count of 130,000. Sodium 132, potassium 3.6, chloride 98, CO2 27, BUN 31, creatinine 1.06. Calcium 7.1. Bilirubin 2.6. AST 282. ALT 210. Albumin 2.5. Initial lactate was 2.5. Repeat was 1.6. CT scan shows a consolidation, the right lung base, with a small right-sided pl eural effusion, consistent with possible pneumonia. In addition, there is a small right hilar lymph node, likely reactive. No evidence of pulmonary embolism is noted. There is no pneumothorax. A 2.4 cm mass in the region of the pancreas is noted. --Patient remains on IV ceftriaxone and azithromycin - Liver enzymes are being monitored and slowly trending down Patient and family requesting oncology consultation 03/15/2025 Patient is seen and evaluated in follow-up on the regular medical floor. She is awake and alert in no acute distress. Sitting up in bedside chair. Breathing easier today compared to yesterday. Still with some cough and congestion. Multiple family members are present in the - she remains on ceftriaxone and azithromycin. Continued on bronchodilators. - White count 17.2. Hemoglobin 9.4. Platelets 117. Sodium 136. Potassium 4.0. Bicarb 23. BUN 22. Creatinine 0.9. Glucose 127. CA 199 antigen was greater than 10,000. - Chest x-ray reveals low lung volumes with generalized hazy appearance. Oncology consultation in place; await evaluation and recommendations Objective - Vital Signs Vital signs: Vital Signs Temp 98.8 F 03/15/25 07:42 Pulse 83 03/15/25 07:45 Resp 18 03/15/25 07:42 BP 144/82 03/15/25 07:42 Pulse Ox 94 L 03/15/25 07:42 FiO2 Intake & Output 03/14/25 03/15/25 03/15/25 18:59 06:59 18:59 Intake Total 480 Balance 480 Intake: Oral 480 Other: Voiding Method Toilet Toilet # Voids 5 2 # Bowel Movements 2 - Exam No acute distress, oriented 3. The patient is currently on 3 L. No respiratory distress. HEENT examination is grossly unremarkable. Mucous membranes are moist. No oral lesions. Neck supple. Full range of motion. No adenopathy thyromegaly or neck vein distention. Cardiovascular examination reveals regular rhythm rate. S1-S2 normal. No S3 or S4. No discernible murmur noted. Lungs reveal diminished breath sounds at the right base, with crackles at the right lung base. The left lung is clear. No wheezes are noted. Abdomen soft bowel sounds are heard. No masses or tenderness. Extremities are intact. No cyanosis clubbing or edema. Skin is without rash or lesion. Neurologic examination is brief but nonfocal. - Labs CBC & Chem 7: 03/14/25 06:42 03/14/25 06:42 Labs: Abnormal Lab Results - Last 24 Hours (Table) 03/14/25 03/14/25 Range/Units 06:42 06:42 WBC 17.21 H (4.50-10.00) X 10*3/uL RBC 3.29 L (4.10-5.20) X 10*6/uL Hgb 9.4 L (12.0-15.0) g/dL Hct 29.7 L (37.2-46.3) % MCHC 31.6 L (32.0-37.0) g/dL RDW 16.1 H (11.5-14.5) % Plt Count 117 L (140-440) X 10*3/uL MPV 13.5 H (9.5-12.2) FL Neutrophils # (Manual) 14.80 H (1.80-7.70) X 10*3/uL Lymphocytes # (Manual) 0.69 L (0.90-5.00) X 10*3/uL Monocytes # (Manual) 1.20 H (0.20-1.00) X 10*3/uL Eosinophils # (Manual) 0.52 H (0.04-0.35) X 10*3/uL NRBC/100 WBC Diff 0.03 H (0.00-0.01) X 10*3/uL Anisocytosis (manual) 2+ A (None Seen) Macrocytosis (manual) 2+ A (None Seen) Anion Gap 13.20 H (4.00-12.00) mmol/L BUN/Creatinine Ratio 24.89 H (12.00-20.00) Ratio Glucose 127 H (70-110) mg/dL Calcium 7.2 L (8.7-10.3) mg/dL Total Bilirubin 2.5 H (0.3-1.2) mg/dL Conjugated Bilirubin 1.74 H (0.20-0.40) mg/dL AST 364 H (13-35) U/L ALT 249 H (8-44) U/L Alkaline Phosphatase 417 H (41-126) U/L Total Protein 4.7 L (6.2-8.2) g/dL Albumin 2.7 L (3.8-4.9) g/dL Albumin/Globulin Ratio 1.35 L (1.60-3.17) Ratio Microbiology - Last 24 Hours (Table) 03/12/25 16:04 Blood Culture - Preliminary Blood Assessment and Plan Assessment: 1. Community-acquired right lower lobe pneumonia -Patient with history of breast cancer and is being worked up for pancreatic mass - Patient being an immune compromised host, will consult pulmonary for further recommendations on IV antibiotics - Patient is currently placed on IV Rocephin and azithromycin - Will monitor CBC, CRP and procalcitonin - Blood cultures and sputum culture if available 2. Acute renal injury; BUNs/creatinine elevated at 31/1.06; we will place on IV fluid hydration, monitor strict GARRISON's, daily weights, renal function electrolytes - Avoid nephrotoxins and hypotension 3. Ongoing evaluation for pancreatic mass with liver metastases - Liver enzymes elevated with AST of 282 and ALT of 210, - Patient reports she is being worked up at an outside facility; we will monitor liver enzymes closely - Consult GI; patient has been evaluated by GI and is recommended transfer to tertiary care center if liver enzymes continue to trend up with possible stent placement 4. Lactic acidosis; likely related to dehydration/pneumonia; we will continue with current management and monitor lactic acid levels 5. Hypertension; losartan 50 mg daily 6. Hyperlipidemia; currently not on any statin therapy DVT prophylaxis; SCDs CODE STATUS; full code
--- NOTE | 2025-03-15 19:24 | P.CONS ---
History of Present Illness - Reason for Consult Consult date: 03/15/25 [place] cancer Requesting physician: Devang Wharton - Chief Complaint SOB - History of Present Illness Patient is a 74-year-old female who presented to the emergency room with shortness of breath, upper abdominal pain and mid back pain. Consult was placed for pancreatic cancer. Patient states over the last couple weeks she has been worked up for cancer in [place]. She underwent liver biopsy on 03/11/2025 at [facility]. Per son patient portal reported her biopsy was positive for pancreatic cancer. On admission CTA chest was obtained which was negative for PE. Small right base infiltrate with small effusion. 16mm right hilar lymph node. Some groundglass density predominantly in the lower lobes. Suggestion of a 2.4 cm pancreatic mass and hepatomegaly. Patient has been started on IV antibiotics for suspected pneumonia. Labs reviewed, CA 199 was elevated greater than 10,000. WBC 17.2, hemoglobin 9.4, MCV 90.3, platelets 217,000. Creatinine 0.9, GFR 68. Bilirubin elevated at 3.0, with transaminitis noted. GI has been consulted and are recommending transfer to tertiary center for biliary stent placement if bilirubin and transaminitis begins to worsen. Patient does report remote history of left breast cancer in 2004 at which time she went under underwent lumpectomy and radiation. She did not receive systemic treatment at that time. Last mammogram was 1 year ago which was negative for malignancy. Patient denies unintentional weight loss and night sweats. Review of Systems 10 point ROS is negative except as stated in the HPI Past Medical History Past Medical History: Cancer, Hyperlipidemia, Hypertension Additional Past Medical History / Comment(s): Hx left breast cancer 2004. Hx Shingles 07/2018. History of Any Multi-Drug Resistant Organisms: None Reported Past Surgical History: Breast Surgery Additional Past Surgical History / Comment(s): Left breast lumpectomy. Past Anesthesia/Blood Transfusion Reactions: No Reported Reaction Additional Past Anesthesia/Blood Transfusion Reaction / Comm: One blood transfusion with childbirth, no reaction. Past Psychological History: No Psychological Hx Reported Smoking Status: Never smoker Past Alcohol Use History: None Reported Past Drug Use History: None Reported - Past Family History Father Additional Family Medical History / Comment(s): MS, heart attack, stroke - at 52. Mother Additional Family Medical History / Comment(s): of an overdose at age 35 (emotional issues). Medications and Allergies Home Medications Medication Instructions Recorded Confirmed Type HYDROcodone/APAP 5-325MG [[place] 0.5 - 1 tab PO Q4H PRN 03/12/25 03/12/25 History 5-325] Losartan [Cozaar] 50 mg PO DAILY 03/12/25 03/12/25 History Allergies Allergy/AdvReac Type Severity Reaction Status Date / Time latex Allergy Rash/Hives Verified 03/12/25 14:57 Physical Exam Vitals: Vital Signs Temp Pulse Pulse Resp BP Pulse Ox 03/15/25 07:45 83 03/15/25 07:42 98.8 F 94 18 144/82 94 L 03/15/25 07:35 82 03/15/25 02:00 98.2 F 82 18 156/82 92 L 03/14/25 19:24 98.5 F 107 H 20 146/71 93 L 03/14/25 14:16 83 03/14/25 14:06 82 03/14/25 14:00 98.5 F 94 16 133/62 95 Intake and Output 03/14/25 03/15/25 03/15/25 22:59 06:59 14:59 Other: Voiding Method Toilet Toilet # Voids 5 2 # Bowel Movements 2 - Constitutional General appearance: average body habitus, no acute distress - EENT Eyes: anicteric sclerae, EOMI ENT: hearing grossly normal - Respiratory Respiratory: bilateral: CTA - Cardiovascular Rhythm: regular - Gastrointestinal General gastrointestinal: soft, tenderness Localized gastrointestinal: tender: RUQ, epigastric periumbilical - Integumentary Integumentary: no cyanotic - Neurologic Neurologic: CNII-XII intact - Psychiatric Psychiatric: A&O x's 3 Results CBC & Chem 7: 03/14/25 06:42 03/14/25 06:42 Labs: Abnormal Lab Results - Last 24 Hours (Table) 03/14/25 03/14/25 03/15/25 Range/Units 06:42 06:42 05:01 WBC 17.21 H (4.50-10.00) X 10*3/uL RBC 3.29 L (4.10-5.20) X 10*6/uL Hgb 9.4 L (12.0-15.0) g/dL Hct 29.7 L (37.2-46.3) % MCHC 31.6 L (32.0-37.0) g/dL RDW 16.1 H (11.5-14.5) % Plt Count 117 L (140-440) X 10*3/uL MPV 13.5 H (9.5-12.2) FL Neutrophils # (Manual) 14.80 H (1.80-7.70) X 10*3/uL Lymphocytes # (Manual) 0.69 L (0.90-5.00) X 10*3/uL Monocytes # (Manual) 1.20 H (0.20-1.00) X 10*3/uL Eosinophils # (Manual) 0.52 H (0.04-0.35) X 10*3/uL NRBC/100 WBC Diff 0.03 H (0.00-0.01) X 10*3/uL Anisocytosis (manual) 2+ A (None Seen) Macrocytosis (manual) 2+ A (None Seen) Anion Gap 13.20 H (4.00-12.00) mmol/L BUN/Creatinine Ratio 24.89 H (12.00-20.00) Ratio Glucose 127 H (70-110) mg/dL Calcium 7.2 L (8.7-10.3) mg/dL Total Bilirubin 2.5 H 3.0 H (0.3-1.2) mg/dL Conjugated Bilirubin 1.74 H 2.16 H (0.20-0.40) mg/dL AST 364 H 323 H (13-35) U/L ALT 249 H 229 H (8-44) U/L Alkaline Phosphatase 417 H 423 H (41-126) U/L Total Protein 4.7 L 4.6 L (6.2-8.2) g/dL Albumin 2.7 L 2.7 L (3.8-4.9) g/dL Albumin/Globulin Ratio 1.35 L 1.42 L (1.60-3.17) Ratio Microbiology - Last 24 Hours (Table) 03/12/25 16:04 Blood Culture - Preliminary Blood Chest x-ray: report reviewed CT scan - chest: report reviewed Assessment and Plan (1) Pancreatic mass Current Visit: Yes Status: Acute Code(s): K86.89 - OTHER SPECIFIED DISEASES OF PANCREAS SNOMED Code(s): 436406006 (2) Pneumonia Current Visit: Yes Status: Acute Code(s): J18.9 - PNEUMONIA, UNSPECIFIED ORGANISM SNOMED Code(s): 955969659 (3) Shortness of breath Current Visit: Yes Status: Acute Code(s): R06.02 - SHORTNESS OF BREATH SNOMED Code(s): 861711186 (4) Transaminitis Current Visit: Yes Status: Acute Code(s): R74.01 - ELEVATION OF LEVELS OF LIVER TRANSAMINASE LEVELS SNOMED Code(s): 912845838 Plan: Pancreatic mass: Presented to the emergency room with shortness of breath, upper abdominal pain and mid back pain. Patient states over the last couple weeks she has been worked up for cancer in [place]. She underwent liver biopsy on 03/11/2025 at [facility] and had imaging completed at [facility]. Per son patient portal reported her biopsy was positive for pancreatic cancer. Patient denies unintentional weight loss and night sweats. She reports remote history of left breast cancer in 2004 at which time she went under underwent lumpectomy and radiation. She did not receive systemic treatment at that time. Last mammogram was 1 year ago which was negative for malignancy. -On admission CTA chest was obtained which was negative for PE. Small right base infiltrate with small effusion. 16mm right hilar lymph node. Some groundglass density predominantly in the lower lobes. Suggestion of a 2.4 cm pancreatic mass and hepatomegaly -Labs reviewed, CA 199 was elevated greater than 10,000. Bilirubin elevated at 3.0, with transaminitis noted. GI has been consulted and are recommending transfer to tertiary center for biliary stent placement if bilirubin and t ransaminitis begins to worsen. Bilirubin/LFTs currently stable, however pt has declined transfer -Patient will be living with children to receive care locally. Will request records from [facility] and [facility] to review workup received -Clinic f/u upon discharge Pneumonia: Presented with SOB -CTA chest showing suspected pneumonia -IV abx started -Pulm following Anemia: -Hemoglobin 9.4, MCV 90.3, platelets 217,000 -Anemia labs obtained -Continue to monitor CBC
[2025-03-16 00:59] LABS: % Iron Saturation 19.32 (12.00-45.00); Iron 40 UG/DL (50-170); Total Iron Binding Capacity 207 UG/DL (228-460)
[2025-03-16 01:30] LABS: Vitamin B12 >3600.0 pg/mL (200.0-944.0)
[2025-03-16 08:14] LABS: Albumin 2.5 g/dL (3.8-4.9); Albumin/Globulin Ratio 1.39 Ratio (1.60-3.17); Bilirubin, Conjugated 1.81 mg/dL (0.20-0.40); Bilirubin,Unconjugated 0.59 mg/dL (0.20-1.00); Globulin 1.8 g/dL (1.6-3.3); Total Bilirubin 2.4 mg/dL (0.3-1.2); Total Protein 4.3 g/dL (6.2-8.2)
[2025-03-16 08:37] LABS: Basophils # (A) 0.06 X 10*3/uL (0.00-0.10); Basophils % (A) 0.3 %; Eosinophils # (A) 0.35 X 10*3/uL (0.04-0.35); Eosinophils % (A) 1.7 %; HCT 26.2 % (37.2-46.3); HGB 8.4 g/dL (12.0-15.0); Lymphocytes # (A) 1.48 X 10*3/uL (0.90-5.00); Lymphocytes % (A) 7.4 %; MCH 29.3 pg (27.0-32.0); MCHC 32.1 g/dL (32.0-37.0); MCV 91.3 FL (80.0-97.0); Mean Platelet Volume 12.8 FL (9.5-12.2); Monocytes # (A) 2.16 X 10*3/uL (0.20-1.00); Monocytes % (A) 10.7 %; NRBC Per 100 WBC 0.02 X 10*3/uL (0.00-0.01); Neutrophils % (A) 78.2 %; Platelet Count 149 X 10*3/uL (140-440); RBC 2.87 X 10*6/uL (4.10-5.20); RDW 16.9 % (11.5-14.5)
--- NOTE | 2025-03-16 15:23 | P.PN ---
Subjective Progress Note Date: 03/16/25 74-year-old female who admits to being short of breath for about 2 weeks. She has dry cough, not producing any phlegm. She recently was at a couple of outside hospitals, where she was evaluated for a pancreatic mass. The mass measures about 2.4 cm in size. Apparently they did a biopsy, of the liver, because the mass apparently invaded the liver, and there is a questionable history of pancreatic cancer. The patient is a lifelong non-smoker, denies any previous history of any lung issues. A chest x-ray and CAT scan suggest a right basilar infiltrate, in addition to a 2.4 cm pancreatic mass. In addition, there may be a right hilar lymph node. The patient is currently on 3 L of oxygen. She is more comfortable on the oxygen. Again, she denies a prior history of any lung issues including COPD, asthma, emphysema, etc. The patient was placed on azithromycin and Rocephin for potential pneumonia. Will check a procalcitonin level. We also ordered some updrafts, with albuterol sulfate ipratropium bromide, and will order CA 199. Current labs include a white count of 15.8, hemoglobin 9.8, hematocrit 28.7, and a platelet count of 130,000. Sodium 132, potassium 3.6, chloride 98, CO2 27, BUN 31, creatinine 1.06. Calcium 7.1. Bilirubin 2.6. AST 282. ALT 210. Albumin 2.5. Initial lactate was 2.5. Repeat was 1.6. CT scan shows a consolidation, the right lung base, with a small right-sided pleural effusion, consistent with possible pneumonia. In addition, there is a small right hilar lymph node, likely reactive. No evidence of pulmonary embolism is noted. There is no pneumothorax. A 2.4 cm mass in the region of the pancreas is noted. The patient is seen today March 14, 2025 in follow-up on the regular medical floor. She is currently sitting up in bed. Awake and alert in no acute distress. Breathing a bit easier today compared to yesterday. Maintaining O2 saturations in the 90s on 3 L/min per nasal cannula. Procalcitonin was positive at 1.28. She remains on ceftriaxone and azithromycin. Continued on DuoNeb inhalations. Normal saline at 75 mL/h. Blood culture pending. Today's labs are pending. The patient is seen today March 15, 2025 in follow-up on the regular medical floor. She is awake and alert in no acute distress. Resting in bed. Breathing easier today compared to yesterday. Still with some cough and congestion. She remains on ceftriaxone and azithromycin. Continued on bronchodilators. White count 17.2. Hemoglobin 9.4. Platelets 117. Sodium 136. Potassium 4.0. Bicarb 23. BUN 22. Creatinine 0.9. Glucose 127. CA 199 antigen was greater than 10,000. Chest x-ray reveals low lung volumes with generalized hazy appearance. The patient is still having epigastric 03/16/2025, the patient continues to have epigastric discomfort and pain. No significant respiratory distress and she remains on 3 L of oxygen by nasal cannula. She does have obstructive jaundice with a pancreatic mass and the plan is to transfer this patient to [facility] for a biopsy and further intervention regarding the pancreatic mass and obstructive biliary disease. CA 19-9 was quite elevated above 10,000. Patient was also seen by hematology oncology. The patient remains hemodynamically stable. The white cell count of 20 hemoglobin is 8.4 and the platelet count is at 149. The total bilirubin is at 2.4, AST and ALT are both elevated with an elevated alkaline phosphatase. Procalcitonin level was at 1.28. I reviewed the CAT scan of the chest that was done at time of admission. No concern of any significant pneumonia and the patient has been treated empirically with antibiotics. No nausea. Oral intake is quite diminished. Objective - Vital Signs Vital signs: Vital Signs Temp 98.4 F 03/16/25 13:50 Pulse 98 03/16/25 13:50 Resp 16 03/16/25 13:50 BP 108/58 03/16/25 13:50 Pulse Ox 93 L 03/16/25 13:50 FiO2 Intake & Output 03/15/25 03/16/25 03/16/25 18:59 06:59 18:59 Intake Total 960 540 Balance 960 540 Weight 93 kg Intake: Oral 960 540 Other: Voiding Method Toilet Toilet Toilet # Voids 0 # Bowel Movements 0 - Exam GENERAL EXAM: Alert, 74-year-old female, resting comfortably in bed, on 3 L nasal cannula, in no apparent distress. HEAD: Normocephalic. EYES: Normal reaction of pupils, equal size. NOSE: Clear with pink turbinates. THROAT: No erythema or exudates. NECK: No masses, no JVD. CHEST: No chest wall deformity. LUNGS: Equal air entry with few scattered rhonchi over the right lung. CVS: S1 and S2 normal with no audible murmur, regular rhythm. ABDOMEN: No hepatosplenomegaly, normal bowel sounds, no guarding or rigidity. SPINE: No scoliosis or deformity SKIN: No rashes CENTRAL NERVOUS SYSTEM: No focal deficits, tone is normal in all 4 extremities. EXTREMITIES: There is no peripheral edema. No clubbing, no cyanosis. Peripheral pulses are intact. - Labs CBC & Chem 7: 03/16/25 04:02 03/14/25 06:42 Labs: Abnormal Lab Results - Last 24 Hours (Table) 03/15/25 03/16/25 03/16/25 Range/Units 14:39 04:02 04:02 WBC 20.10 H (4.50-10.00) X 10*3/uL RBC 2.87 L (4.10-5.20) X 10*6/uL Hgb 8.4 L (12.0-15.0) g/dL Hct 26.2 L (37.2-46.3) % RDW 16.9 H (11.5-14.5) % MPV 12.8 H (9.5-12.2) FL Immature Gran # 0.35 H (0.00-0.04) X 10*3/uL Neutrophils # 15.70 H (1.80-7.70) X 10*3/uL Monocytes # 2.16 H (0.20-1.00) X 10*3/uL NRBC/100 WBC Diff 0.02 H (0.00-0.01) X 10*3/uL Iron 40 L (50-170) UG/DL TIBC 207 L (228-460) UG/DL Transferrin 148.0 L (204.0-354.0) mg/dL Ferritin 6205.0 H (10.0-291.0) ng/mL Total Bilirubin 2.4 H (0.3-1.2) mg/dL Conjugated Bilirubin 1.81 H (0.20-0.40) mg/dL AST 346 H (13-35) U/L ALT 229 H (8-44) U/L Alkaline Phosphatase 380 H (41-126) U/L Total Protein 4.3 L (6.2-8.2) g/dL Albumin 2.5 L (3.8-4.9) g/dL Albumin/Globulin Ratio 1.39 L (1.60-3.17) Ratio Vitamin B12 >3600.0 H (200.0-944.0) pg/mL Microbiology - Last 24 Hours (Table) 03/12/25 16:04 Blood Culture - Preliminary Blood Assessment and Plan Plan: Acute hypoxic respiratory failure secondary to pneumonia, right lower lobe. The patient remains on IV Rocephin. Procalcitonin level was elevated at time of admission. Nevertheless, there is no convincing evidence of pneumonia based on CAT scan findings. pancreatic mass, with possible invasion into the liver, at an outside hospital. CA 199 antigen was greater than 10,000. Findings are suspicious for pancreatic cancer and the patient has obstructive jaundice. LFTs and bilirubin are both elevated. History of hypertension History of hyperlipidemia History of breast cancer History of shingles Lifelong non-smoker Plan: Titrate oxygen flow to maintain an oxygen saturation above 90% Continue bronchodilators Continue IV Rocephin Increase her activity as tolerated Medical oncology consulted The patient is looking to be transferred to [facility] for further intervention, biliary stenting, biopsy of the pancreatic mass for tissue diagnosis. She is quite symptomatic and she continues to have epigastric and upper abdominal pain radiating to the sides bilaterally. Family is at the bedside.
--- NOTE | 2025-03-16 15:45 | P.PN ---
Subjective Progress Note Date: 03/16/25 Principal diagnosis: pneumonia, pancreatic adenocarcinoma In f/u today pt reporting pain, feels like a band going around the body just under the ribs, all the way across the back, intermittent, she denies any aggravating factors such as eating, it does stop her from moving around. Objective - Vital Signs Vital signs: Vital Signs Temp 98.4 F 03/16/25 13:50 Pulse 98 03/16/25 13:50 Resp 16 03/16/25 13:50 BP 108/58 03/16/25 13:50 Pulse Ox 93 L 03/16/25 13:50 FiO2 Intake & Output 03/15/25 03/16/25 03/16/25 18:59 06:59 18:59 Intake Total 960 540 Balance 960 540 Weight 93 kg Intake: Oral 960 540 Other: Voiding Method Toilet Toilet Toilet # Voids 0 # Bowel Movements 0 - Constitutional General appearance: Present: cooperative, no acute distress, obese - EENT Eyes: Present: anicteric sclerae, EOMI ENT: Present: hearing grossly normal - Respiratory Respiratory: bilateral: CTA - Cardiovascular Details: skin warm, well perfused - Labs CBC & Chem 7: 03/16/25 04:02 03/14/25 06:42 Labs: Abnormal Lab Results - Last 24 Hours (Table) 03/15/25 03/16/25 03/16/25 Range/Units 14:39 04:02 04:02 WBC 20.10 H (4.50-10.00) X 10*3/uL RBC 2.87 L (4.10-5.20) X 10*6/uL Hgb 8.4 L (12.0-15.0) g/dL Hct 26.2 L (37.2-46.3) % RDW 16.9 H (11.5-14.5) % MPV 12.8 H (9.5-12.2) FL Immature Gran # 0.35 H (0.00-0.04) X 10*3/uL Neutrophils # 15.70 H (1.80-7.70) X 10*3/uL Monocytes # 2.16 H (0.20-1.00) X 10*3/uL NRBC/100 WBC Diff 0.02 H (0.00-0.01) X 10*3/uL Iron 40 L (50-170) UG/DL TIBC 207 L (228-460) UG/DL Transferrin 148.0 L (204.0-354.0) mg/dL Ferritin 6205.0 H (10.0-291.0) ng/mL Total Bilirubin 2.4 H (0.3-1.2) mg/dL Conjugated Bilirubin 1.81 H (0.20-0.40) mg/dL AST 346 H (13-35) U/L ALT 229 H (8-44) U/L Alkaline Phosphatase 380 H (41-126) U/L Total Protein 4.3 L (6.2-8.2) g/dL Albumin 2.5 L (3.8-4.9) g/dL Albumin/Globulin Ratio 1.39 L (1.60-3.17) Ratio Vitamin B12 >3600.0 H (200.0-944.0) pg/mL Microbiology - Last 24 Hours (Table) 03/12/25 16:04 Blood Culture - Preliminary Blood Assessment and Plan (1) Pancreatic adenocarcinoma Current Visit: Yes Status: Acute Priority: High Code(s): C25.9 - MALIGNANT NEOPLASM OF PANCREAS, UNSPECIFIED SNOMED Code(s): 275641285 (2) Transaminitis Current Visit: Yes Status: Acute Priority: High Code(s): R74.01 - ELEVATION OF LEVELS OF LIVER TRANSAMINASE LEVELS SNOMED Code(s): 183068473 Plan: Pancreatic mass Presented to the emergency room with shortness of breath, upper abdominal pain and mid back pain. Patient states over the last couple weeks she has been worked up for cancer in [place]. She underwent liver biopsy on 03/11/2025 at [facility]-path report reviewed. Rare atypical cells, suspicious for malignancy. They are recommending repeat sampling. -Ca19.9 >10,000 -On admit, Bilirubin elevated at 3.0, with transaminitis noted. GI evaluated pt and recommended transfer to tertiary center for biliary stent placement if bilirubin and transaminitis begins to worsen. Bilirubin/LFTs currently stable but, persistently elevated. After discussion with Dr. March regarding the reasoning for evaluation of tertiary center is to relieve suspected obstruction but also, based on pathology report, another biopsy is recommended. Patient, and family at the bedside understand. They are in agreement with transfer. Case was discussed with Attending Nurse Practitioner - Dr. March reviewed with pt and family, based on the information that we have, liver biopsy suggestive of malignancy. Family reports pancreatic adenocarc inoma-this is NOT confirmed in the pathology report received later in the day after seeing pt and family. Based on what family reported, pancreatic adenocarcinoma in the liver would represent stage IV disease. Stage IV disease is not curable but it is treatable for some time. Treatment option that is available at this stage is chemotherapy. Molecular testing can be performed on tissue that could reveal a targeted mutation or that the tumor is susceptible to immunotherapy. Based on info obtained after pt seen, new biopsy needed so that there is adequate specimen for testing. -Agree with transfer for treatment of obstruction. Also, may be able to obtain a better specimen for biopsy. Pneumonia -Presented with SOB -On admission CTA chest was obtained which was negative for PE. Small right base infiltrate with small effusion. 16mm right hilar lymph node. Some groundglass density predominantly in the lower lobes. Suggestion of a 2.4 cm pancreatic mass and hepatomegaly. -Persistent but not progressive resp symptoms-SOB on exertion -Pulm following, pt being treated for pneumonia. Anemia -Anemia lab work up ordered. Anemia workup showing significant inflammation, ferritin 6205. No additional iron at this time. Still pending completion of other anemia labs. - Transfuse for hemoglobin less than 7 or if patient is symptomatic -Hemoglobin 8.4 today, no transfusion needed Breast cancer -Remote history of left breast cancer in 2004, treated with lumpectomy and radiation. -Last mammogram was 1 year ago, negative for malignancy. Doctor attests: I performed a history and physical examination of this patient, developed impression and plan of care. Discussed with dictator. I agree with dictators note, documented as a scribe. Time with Patient: Greater than 30 (>60 min spent counseling and coordinating care)
[2025-03-16] MEDS ORDERED: HYDROcodone/APAP 7.5-325MG 1 EACH TAB PO PRN (15:46)
[2025-03-16] MEDS ORDERED: MAGNESIUM HYDROXIDE 2,400 MG/30 ML CUP PO PRN (15:47)
[2025-03-16] MEDS: MORPHINE SULFATE ER 15 MG TABLET PO SCH (16:07)
--- NOTE | 2025-03-16 19:14 | P.DS ---
Providers Date of admission: 03/12/25 17:03 Expected date of discharge: 03/16/25 Attending physician: Laurent Ashby Consults: 03/12/25 17:03 Consult Physician Urgent Consulting Provider: Karina Chang Consult Reason/Comments: pancreatic cancer Do you want consulting provider notified?: Yes 03/13/25 12:43 Consult Physician Routine Consulting Provider: Joel Archibald Consult Reason/Comments: PNA Do you want consulting provider notified?: Yes 03/14/25 13:19 Consult Physician Urgent Consulting Provider: Taty March Consult Reason/Comments: elevated ca19 marker, new pancreatic ca w/mets liver Do you want consulting provider notified?: Yes Primary care physician: Ricardo Taurus [place]ton Hospital Course: Final diagnosis -Community-acquired right lower lobe pneumonia, present on admission with acute hypoxic respiratory failure requiring 2 L -Patient with history of breast cancer in 2004 status post lumpectomy -pancreatic mass noted on imaging with multiple liver lesions was seen at [facility] and had biopsy that was inadequate -Acute renal injury, likely secondary to acute dehydration and poor oral intake -Ongoing evaluation for pancreatic mass with liver metastases - Transaminitis, liver enzymes elevated with AST, being transferred for GI services for possible ERCP with EUS -Lactic acidosis; likely related to dehydration/pneumonia -Obesity with a BMI of 37.5 -Hypertension -Hyperlipidemia -GI prophylaxis -DVT prophylaxis -full code Discharge disposition Patient is being transferred in stable condition with guarded prognosis to [facility] and has been accepted by SAMAN Gar with GI services Dr. Marshall with concerns of the need of possible ERCP with EUS and possible biliary stent placement. Patient will follow-up with Dr. Condon in the outpatient setting upon discharge. Total time taken is greater than 35 minutes. Hospital course 74-year-old female, history of hypertension, hyperlipidemia, breast cancer, pancreatic mass who admits to being short of breath for about 2 weeks. She has dry cough, not producing any phlegm. She recently was at a couple of outside hospitals, where she was evaluated for a pancreatic mass. The mass measures about 2.4 cm in size. Apparently they did a biopsy, of the liver, because the mass apparently invaded the liver, and there is a questionable history of pancreatic cancer. The patient is a lifelong non-smoker, denies any previous history of any lung issues. The patient is currently on 3 L of oxygen. She is more comfortable on the oxygen. A chest x-ray and CAT scan suggest a right basilar infiltrate, in addition to a 2.4 cm pancreatic mass. In addition, there may be a right hilar lymph node. -- The patient was placed on azithromycin and Rocephin for potential pneumonia. Will check a procalcitonin level. We also ordered some updrafts, with albuterol sulfate ipratropium bromide, and will order CA 199. - Current labs include a white count of 15.8, hemoglobin 9.8, hematocrit 28.7, and a platelet count of 130,000. Sodium 132, potassium 3.6, chloride 98, CO2 27, BUN 31, creatinine 1.06. Calcium 7.1. Bilirubin 2.6. AST 282. ALT 210. Albumin 2.5. Initial lactate was 2.5. Repeat was 1.6. CT scan shows a consolidation, the right lung base, with a small right-sided pleural effusion, consistent with possible pneumonia. In addition, there is a small right hilar lymph node, likely reactive. No evidence of pulmonary embolism is noted. There is no pneumothorax. A 2.4 cm mass in the region of the pancreas is noted. --Patient remains on IV ceftriaxone and azithromycin - Liver enzymes are being monitored and slowly trending down Patient and family requesting oncology consultation 03/15/2025 Patient is seen and evaluated in follow-up on the regular medical floor. She is awake and alert in no acute distress. Sitting up in bedside chair. Breathing easier today compared to yesterday. Still with some cough and congestion. Multiple family members are present in the - she remains on ceftriaxone and azithromycin. Continued on bronchodilators. - White count 17.2. Hemoglobin 9.4. Platelets 117. Sodium 136. Potassium 4.0. Bicarb 23. BUN 22. Creatinine 0.9. Glucose 127. CA 199 antigen was greater than 10,000. - Chest x-ray reveals low lung volumes with generalized hazy appearance. Oncology consultation in place; await evaluation and recommendations 03/16/2025 Patient is seen in follow-up today continues to report abdominal pain and bandlike feeling with elevated LFTs and was evaluated by GI prior to them going off service and reported if having increasing abdominal pain her liver functions remain elevated recommending transfer for tertiary treatment for biliary drainage and/or stent placement with ERCP and EUS. Contacted transfer team and transfer was initiated after patient was eventually agreeable and has been accepted at [facility]. Patient is continued on ceftriaxone and Zithromax with concerns of possible community-acquired pneumonia and did have an elevated procalcitonin. Patient being followed by oncology also recommending transfer for tertiary treatment in need of biopsy. Physical exam: Gen: This is a 74-year-old female who is awake, alert and oriented x 3, well- developed, elderly appearing, obese HEENT: Head is atraumatic, normocephalic. Pupils equal, round. Sclerae is anicteric. NECK: Supple. No JVD. No lymphadenopathy. No thyromegaly. LUNGS: Diminished breath sounds bilaterally otherwise clear to auscultation. No wheezes or rhonchi. No intercostal retractions. HEART: Regular rate and rhythm. No murmur. ABDOMEN: Soft. Obese, tenderness on palpation bowel sounds are present. No masses. EXTREMITIES: No pedal edema. No calf tenderness. NEUROLOGICAL: Patient is awake, alert and oriented x3. Cranial nerves 2 through 12 are grossly intact. Diffusely weak Please refer to medication reconciliation sheet for a list of medications. The impression and plan of care has been dictated by Rayne Hunt, Nurse Practitioner as directed. Dr. Trena MD I have performed a history and examination and MDM of this patient, discussed the same with the dictator, and agree with the dictator's assessment and plan as written ,documented as a scribe. Based on total visit time, I have performed more than 50% of the visit. Patient Condition at Discharge: Stable Plan - Discharge Summary Discharge Rx Participant: No New Discharge Prescriptions: No Action Losartan [Cozaar] 50 mg PO DAILY HYDROcodone/APAP 5-325MG [[place] 5-325] 0.5 - 1 tab PO Q4H PRN PRN Reason: Pain Discharge Medication List HYDROcodone/APAP 5-325MG [[place] 5-325] 0.5 - 1 tab PO Q4H PRN 03/12/25 [History] Losartan [Cozaar] 50 mg PO DAILY 03/12/25 [History] Follow up Appointment(s)/Referral(s): Ricardo Condon MD [Primary Care Provider] - 1-2 days
[2025-03-16 20:09] VITALS: BP 120/74; RESP 14; TEMP 97.7
[2025-03-16 20:15] VITALS: PULSE 78
[2025-03-16] MEDS: SENNOSIDES-DOCUSATE SODIUM 1 EACH TAB PO SCH (20:17)
[2025-03-16] MEDS: HYDROcodone/APAP 5-325MG 1 EACH TAB PO PRN (21:33)
--- NOTE | 2025-03-23 10:24 | CDI ---
Documentation Clarification Form Date: 03/23/2025 08:47:00 AM From: Yue Carrillo RN, CCDS Phone: [phone] Admit Date: 03/12/2025 05:03:00 PM Patient Name: Aniya Arechiga Visit Number: [id number] Discharge Date: 03/16/2025 09:38:00 PM ATTENTION: The Clinical Documentation Specialists (CDI) and [facility] Coding Staff appreciate your assistance in clarifying documentation. Please respond to the clarification below the line at the bottom and electronically sign. The CDI & [facility] Coding staff will review the response and follow-up if needed. Please note: Queries are made part of the Legal Health Record. If you have any questions, please contact the author of this message via ITS. Provider: Rayne JEFFRIES Acute hypoxic respiratory failure is documented in the pulmonary progress notes starting on 03/14/25 and the attending discharge summary which may lack sufficient clinical evidence/support in the medical record. Additional clarification is requested. History/Risk Factors: COPD, Asthma Clinical Indicators: 74-year-old present for evaluation of shortness of breath. Oxygen saturations have been found to be in the 80s. She admits to exertional dyspnea but denies any orthopnea or peripheral edema. Reports feeling weak and fatigued. 03/12 ER Respiratory exam: Present: normal lung sounds bilaterally. Absent: respiratory distress, wheezes, rales, rhonchi, stridor 03/12 (12:49) VS: 126/63 90 20 98.2 90% RA (13:30 86% RA, 93% 2/L 03/22 Labs: WBC 19.31, BUN 26, CR 1.07, Lactic acid 2.6, 2.5 03/12 CXR: Small right base infiltrate with small effusion raising the question of pneumonia. A 16 mm right hilar lymph node which could be reactive secondary to the pneumonia. Some groundglass density predominantly in the lower lobes raising the questions of atelectasis or mild pulmonary edema. 03/14 Pulmonary progress notes: General Exam: "alert, pleasant [id number] female, on 3 l nasal cannula, fairly comfortable in no apparent distress. LUNGS: Equal air entry with few scattered rhonchi over the right lung. " Acute hypoxic respiratory failure secondary to pneumonia, right lower lobe. Procalcitonin 1.28 Treatment: Monitor o2 Sat's Titrate down the FiO2 as tolerated Albuterol/Ipratropium 0.5Mg-3Mg/3Ml [place] Inhalation RT-TID Zithromax 500MG PO Daily, Rocephin 1 gm IVPB Q 24 HRS Please clarify Acute hypoxic respiratory failure is a valid diagnosis? [ ] No Acute hypoxic respiratory failure is ruled out [x ] Yes, Acute hypoxic respiratory failure is present as evidence by (additional clinical support): Secondary to right lower lobe pneumonia, present on admission [ ] Other (please specify diagnosis) [ ] Unable to determine (Template Last Revised: April 2024) MTDD
== END 2025-03-16 21:38 | disposition short-term general hospital (02) | DRG 193 ==
LOC: EC 12:47 → 5NMEDONC 17:03
PROVIDERS: ADMIT Hospitalist; ATTEND Hospitalist
DX: J18.9 Pneumonia, unspecified organism (principal); J96.01 Acute respiratory failure with hypoxia; K83.1 Obstruction of bile duct; C78.7 Secondary malignant neoplasm of liver and intrahepatic bile duct; C25.9 Malignant neoplasm of pancreas, unspecified; E87.20 Acidosis, unspecified; D63.0 Anemia in neoplastic disease; D84.9 Immunodeficiency, unspecified; J90 Pleural effusion, not elsewhere classified; E66.9 Obesity, unspecified; I10 Essential (primary) hypertension; N17.9 Acute kidney failure, unspecified; E86.0 Dehydration; E78.5 Hyperlipidemia, unspecified; G89.3 Neoplasm related pain (acute) (chronic); Z86.19 Personal history of other infectious and parasitic diseases; Z91.040 Latex allergy status; Z68.37 Body mass index [BMI] 37.0-37.9, adult; Z85.3 Personal history of malignant neoplasm of breast; Z79.899 Other long term (current) drug therapy
CPT/HCPCS: 36415; 71045; 71275; 80048; 80053; 80076; 82607; 82728; 82747; 83540; 83550; 83605; 83880; 83921; 84145; 84484; 85025; 85610; 85730; 86301; 87040; 87636; 93005; 94640; 94760; 96361; 96365; 96375; 96376; 99285